=== PATIENT | female | born 1965 | race Caucasian/White ===

== ENCOUNTER 2017-08-12 16:23 | Emergency (ER) | payer BC ==
--- NOTE | 2017-08-12 18:21 | ER Document Report ---
ED Medical Screen (RME) - General Chief Complaint: Passed Out Prior to Arrival Stated Complaint: SYCOPE Time Seen by Provider: 08/12/17 18:18 Notes: Patient states that she was diagnosed with an upper respiratory infection yesterday at urgent care. She was given Zithromax and Tussionex. She took 1 dose of it today around 1 PM. She states approximately 3 PM she sat forward on the couch because that she was going to vomit and the next thing she knew she was being picked up off the floor by her . Her states she slid to the end of the bed and then he saw her fall face forward on the floor. No previous history of similar problems except 30 Years Ago Patient Did Pass out once with a kidney stone. Patient has had nausea but no vomiting. No diarrhea no rashes no other trauma. - Related Data Allergies/Adverse Reactions: Quinolones Allergy (Severe, Verified 08/12/17 16:27) Hives ofloxacin [From Floxin] Allergy (Verified 08/12/17 16:27) Hives Past Medical History - Social History Chew tobacco use (# tins/day): Yes Frequency of alcohol use: None Drug Abuse: None - Past Medical History Cardiac Medical History: Reports: Hx Hypercholesterolemia, Hx Hypertension Denies: Hx Coronary Artery Disease, Hx Heart Attack Pulmonary Medical History: Denies: Hx Asthma, Hx Bronchitis, Hx COPD, Hx Pneumonia Neurological Medical History: Denies: Hx Cerebrovascular Accident, Hx Seizures Renal/ Medical History: Reports: Hx Kidney Stones. Denies: Hx Peritoneal Dialysis Musculoskeltal Medical History: Denies Hx Arthritis Past Surgical History: Reports: Hx Kidney (Renal Surgery) - KIDNEY STONE SURGERY , Hx Orthopedic Surgery - left thr, Hx Tubal Ligation. Denies: Hx Pacemaker - Immunizations Hx Diphtheria, Pertussis, Tetanus Vaccination: No Physical Exam - Vital signs Vitals: Temp Pulse Resp BP Pulse Ox 99.9 F 94 18 106/63 97 08/12/17 16:41 08/12/17 16:41 08/12/17 16:41 08/12/17 16:41 08/12/17 16:41 Course - Vital Signs Vital signs: Temp Pulse Resp BP Pulse Ox 99.9 F 94 18 106/63 97 08/12/17 16:41 08/12/17 16:41 08/12/17 16:41 08/12/17 16:41 08/12/17 16:41 Doctor's Discharge - Discharge Referrals: KAMERON EASTMAN MD [Primary Care Provider] - Follow up as needed
--- NOTE | 2017-08-12 20:04 | ER Document Report ---
ED General - General Chief Complaint: Passed Out Prior to Arrival Stated Complaint: SYCOPE Time Seen by Provider: 08/12/17 18:18 Notes: Patient is a 51-year-old female who comes emergency department for chief complaint of syncopal episode, she states she has had upper respiratory infection with cough and congestion along with chills, she was started on azithromycin and Tussionex, she took her medication this evening and shortly after she passed out. states she was getting up from the couch as if to throw up and then passed out, fell forward, and hit her face on the floor. Patient denies headache, dizziness, visual changes, nausea, chest pain, or any other current symptoms other than feeling tired. She does have intermittent congested cough. She smokes, has a history of hypertension and hyperlipidemia. - Related Data Allergies/Adverse Reactions: Quinolones Allergy (Severe, Verified 08/12/17 16:27) Hives ofloxacin [From Floxin] Allergy (Verified 08/12/17 16:27) Hives Past Medical History - General Information source: Patient, Relative - Social History Smoking Status: Current Every Day Smoker Chew tobacco use (# tins/day): Yes Frequency of alcohol use: None Drug Abuse: None Lives with: Family Family History: Reviewed & Not Pertinent Patient has suicidal ideation: No Patient has homicidal ideation: No - Past Medical History Cardiac Medical History: Reports: Hx Hypercholesterolemia, Hx Hypertension Denies: Hx Coronary Artery Disease, Hx Heart Attack Pulmonary Medical History: Denies: Hx Asthma, Hx Bronchitis, Hx COPD, Hx Pneumonia Neurological Medical History: Denies: Hx Cerebrovascular Accident, Hx Seizures Renal/ Medical History: Reports: Hx Kidney Stones. Denies: Hx Peritoneal Dialysis Musculoskeltal Medical History: Denies Hx Arthritis Past Surgical History: Reports: Hx Kidney (Renal Surgery) - KIDNEY STONE SURGERY , Hx Orthopedic Surgery - left thr, Hx Tubal Ligation. Denies: Hx Pacemaker - Immunizations Hx Diphtheria, Pertussis, Tetanus Vaccination: No Review of Systems - Review of Systems Constitutional: See HPI EENT: No symptoms reported Cardiovascular: No symptoms reported Respiratory: See HPI Gastrointestinal: See HPI Genitourinary: No symptoms reported Female Genitourinary: No symptoms reported Musculoskeletal: No symptoms reported Skin: No symptoms reported Hematologic/Lymphatic: No symptoms reported Neurological/Psychological: See HPI Physical Exam - Vital signs Vitals: Temp Pulse Resp BP Pulse Ox 99.9 F 94 18 106/63 97 08/12/17 16:41 08/12/17 16:41 08/12/17 16:41 08/12/17 16:41 08/12/17 16:41 Interpretation: Normal - General General appearance: Appears well In distress: None - HEENT Head: Normocephalic, Atraumatic Eyes: Normal Conjunctiva: Normal Extraocular movements intact: Yes Eyelashes: Normal Pupils: PERRL Sinus: Normal Nasal: Normal Mouth/Lips: Normal Mucous membranes: Normal Pharynx: Normal Neck: Normal - Respiratory Respiratory status: No respiratory distress Chest status: Nontender Breath sounds: Normal. No: Decreased air movement, Wheezing Chest palpation: Normal - Cardiovascular Rhythm: Regular. No: Tachycardia Heart sounds: Normal auscultation, S1 appreciated, S2 appreciated Murmur: No - Abdominal Inspection: Normal Distension: No distension Bowel sounds: Normal Tenderness: Nontender. No: Tender, Guarding Organomegaly: No organomegaly - Back Back: Normal, Nontender. No: Tender - Extremities General upper extremity: Normal inspection, Nontender, Normal strength, Normal temperature General lower extremity: Normal inspection, Nontender, Normal strength, Normal temperature. No: Edema - Neurological Neuro grossly intact: Yes Cognition: Normal Orientation: AAOx4 Pemberton Coma Scale Eye Opening: Spontaneous [place] Coma Scale Verbal: Oriented P[place] Coma Scale Motor: Obeys Commands Pemberton Coma Scale Total: 15 Speech: Normal Motor strength normal: LUE, RUE, LLE, RLE Sensory: Normal - Psychological Associated symptoms: Normal affect, Normal mood - Skin Skin Temperature: Warm Skin Moisture: Dry Skin Color: Normal Course - Re-evaluation Re-evalutation: Patient alert, well-appearing, has a normal neurological exam, no complaints currently other than occasional congested cough and feeling tired. She had taken hydrocodone prior to syncope although this has not happened before and she had taken it before. EKG shows sinus rhythm at a rate of 95, flattened T waves anteriorly, no T-wave inversions or ST segment changes in consecutive leads, normal axis, normal UT interval 156, QTC of 418. Patient did not have any chest pain. Negative troponin. Troponin was cycled and still negative. Chest x-ray unremarkable. CBC shows elevated hemoglobin, patient was given IV fluids, she is also a chronic smoker. Chemistry is unremarkable, urine is actually unremarkable. On reevaluation patient is alert and well-appearing. CAT scan of the head is normal. Patient states she is afraid to take her cough medicine because she passed out shortly after taking this. She states she already has Tessalon at home and she is asking to be discharged because she feels fine. The exact cause of her syncopal episode at this time is uncertain although I do suspect this is vasovagal and possibly affected by the medication as well. No evidence of ACS, hypoglycemia, and patient examination is benign. Patient has close primary care follow-up. Patient asking for Zofran to take with her antibiotic and other cough medicine. Discussed return precautions, head injury precautions , patient and state understanding and agreement. - Vital Signs Vital signs: Temp Pulse Resp BP Pulse Ox 99.9 F 89 16 114/64 97 08/12/17 23:27 08/12/17 23:27 08/12/17 23:27 08/12/17 23:27 08/12/17 23:27 - Laboratory Result Diagrams: 08/12/17 20:15 08/12/17 20:15 Laboratory results interpreted by me: 08/12/17 20:15 RBC 5.57 H Hgb 16.2 H Hct 49.2 H RDW 14.9 H Lymphocytes % 10.6 L Monocytes % 13.6 H Discharge - Discharge Clinical Impression: Cough Episode of syncope Qualifiers: Syncope type: unspecified Qualified Code(s): R55 - Syncope and collapse Upper respiratory infection Qualifiers: URI type: unspecified URI Qualified Code(s): J06.9 - Acute upper respiratory infection, unspecified Condition: Stable Disposition: HOME, SELF-CARE Additional Instructions: The CAT scan of your head does not show any abnormality. Please follow head injury precautions listed below. Continue your azithromycin. Because he passed out after taking the Tussionex I would use this only with a lot of caution, maybe try cutting it in half or not using it altogether. Take Zofran if needed for nausea with your medications. Follow-up with your primary care for additional evaluation and management. See additional details on syncope below. Return for any concerning symptoms. Head Injury Precautions At this point, there is no evidence that your head injury is serious. Observation is necessary, however. Take only clear liquids for the first few hours, unless told otherwise by the doctor. If no pain medication was prescribed, you may take acetaminophen according to the directions on the bottle. Do not take any medication that may alter your level of alertness (unless you've discussed it with the doctor first) . Limit activity for the first 24 hours. Bed rest is best. During the first 24 hours, check to see approximately every two to three hours that the patient is easily arousable, responds normally, and can perform common tasks such as walking without difficulty. Contact your doctor or go to the hospital if any of the following things occur: Persistent vomiting, difficulty in arousing the patient, worsening or continued headache, or failure to improve as expected. Head injuries can cause symptoms that persist for a few days or even a few weeks. Syncopal Episode Syncope (fainting or near-fainting) can occur from many different health problems. Or it can be a simple fainting spell requiring no treatment. It is safe for you to go home, but further evaluation will likely be necessary. Your work-up may include tests for internal bleeding, heart disease, medication problems, or near-strokes. Tests are not always required, however, depending on the nature of your problem. The warning signs of an impending faint include: dizziness, lightheadedness , nausea, hot flashes, tingling, and weakness. If this happens, lay down and put your feet up, then wait until all of these symptoms have passed before standing up again. If these episodes become recurrent, or if you develop chest pain, heart palpitations, mental confusion, blurred vision, or headache, then you should call the physician, or go to the emergency room. Prescriptions: Ondansetron [Zofran Odt 4 mg Tablet] 1 - 2 tab PO Q4H PRN #15 tab.rapdis PRN Reason: For Nausea/Vomiting Referrals: KAMERON EASTMAN MD [Primary Care Provider] - Follow up as needed
--- NOTE | 2017-08-12 20:16 | RADIOLOGY REPORT (SQ) ---
EXAM DESCRIPTION: CHEST PA/LAT COMPLETED DATE/TIME: 08/12/2017 8:08 pm REASON FOR STUDY: cough, syncope COMPARISON: None. EXAM PARAMETERS: NUMBER OF VIEWS: two views TECHNIQUE: Digital Frontal and Lateral radiographic views of the chest acquired. RADIATION DOSE: NA LIMITATIONS: none FINDINGS: LUNGS AND PLEURA: Mild chronic interstitial changes are suggested. There is no acute infi ltrate or effusion. There is no mass. MEDIASTINUM AND HILAR STRUCTURES: No masses or contour abnormalities. HEART AND VASCULAR STRUCTURES: Heart normal size. No evidence for failure. BONES: No acute findings. HARDWARE: None in the chest. OTHER: No other significant finding. IMPRESSION: Chronic lung changes with no acute cardiopulmonary disease. TECHNICAL DOCUMENTATION: JOB ID: [id number] [employer]- All Rights Reserved Reading location - IP/workstation name: [email or web address]
--- NOTE | 2017-08-12 20:41 | RADIOLOGY REPORT (SQ) ---
EXAM DESCRIPTION: CT HEAD WITHOUT COMPLETED DATE/TIME: 08/12/2017 8:14 pm REASON FOR STUDY: syncope COMPARISON: None. TECHNIQUE: Axial images acquired through the brain without intravenous contrast. Images reviewed wi th bone, brain and subdural windows. Images stored on PACS. All CT scanners at this facility use dose modulation, iterative reconstruction, and/or weight based d osing when appropriate to reduce radiation dose to as low as reasonably achievable (ALARA). [facility]: Dose Right [facility]: CareDose [facility]: Dose Right [facility]: Teradose 4D [facility]: Smart Reebee RADIATION DOSE: CT Rad equipment meets quality standard of care and radiation dose reduction techniq ues were employed. CTDIvol: 64.6 mGy. DLP: 1034 mGy-cm. mGy. LIMITATIONS: None. FINDINGS: VENTRICLES: Normal size and contour. CEREBRUM: No masses. No hemorrhage. No midline shift. No evidence for acute infarction. Normal gra y/white matter differentiation. No areas of low density in the white matter. CEREBELLUM: No masses. No hemorrhage. No alteration of density. No evidence for acute infarction. EXTRAAXIAL SPACES: No fluid collections. No masses. ORBITS AND GLOBE: No intra- or extraconal masses. Normal contour of globe without masses. CALVARIUM: No fracture. PARANASAL SINUSES: No fluid or mucosal thickening. SOFT TISSUES: No mass or hematoma. OTHER: No other significant finding. IMPRESSION: NORMAL BRAIN CT WITHOUT CONTRAST. EVIDENCE OF ACUTE STROKE: NO. COMMENT: Quality ID # [id number]: Final reports with documentation of one or more dose reduction techniques (e.g., Automated exposure control, adjustment of the mA and/or kV according to patient size, use of iterative reconstruction technique) TECHNICAL DOCUMENTATION: JOB ID: [id number] [employer]- All Rights Reserved Reading location - IP/workstation name: [email or web address]
[2017-08-12] MEDS ORDERED: NORMAL SALINE 1000 ML 1,000 ML IV ONE (20:52)
[2017-08-12 20:57] LABS: ABSOLUTE LYMPHOCYTES (AUTO) 0.9 10^3/uL (0.5-4.7); ABSOLUTE MONOCYTES (AUTO) 1.1 10^3/uL (0.1-1.4); ABSOLUTE NEUT (AUTO) 6.4 10^3/uL (1.7-8.2); BASOPHILS % (AUTO) 0.3 % (0-2); EOSINOPHILS % (AUTO) 0.1 % (0-6); HEMATOCRIT 49.2 % (36.0-47.0); HEMOGLOBIN 16.2 g/dL (12.0-15.5); LYMPHOCYTES % (AUTO) 10.6 % (13-45); MEAN CORPUSCULAR HEMOGLOBIN 29.1 pg (27.0-33.4); MEAN CORPUSCULAR VOLUME 88 fl (80-97); MONOCYTES % (AUTO) 13.6 % (3-13); PLATELET COUNT 238 10^3/uL (150-450); RED BLOOD COUNT 5.57 10^6/uL (3.72-5.28); RED CELL DISTRIBUTION WIDTH 14.9 % (11.5-14.0); SEGMENTED NEUTROPHILS % (AUTO) 75.4 % (42-78); TOTAL CELLS COUNTED % (AUTO) 100 %; WHITE BLOOD COUNT 8.5 10^3/uL (4.0-10.5)
[2017-08-12 21:18] LABS: ALANINE AMINOTRANSFERASE 45 U/L (9-52); ALKALINE PHOSPHATASE 77 U/L (38-126); ANION GAP 11 (5-19); ASPARTATE AMINO TRANSFERASE 25 U/L (14-36); BILIRUBIN,DIRECT 0.2 mg/dL (0.0-0.4); BILIRUBIN,TOTAL 0.3 mg/dL (0.2-1.3); BLOOD UREA NITROGEN 12 mg/dL (7-20); CALCIUM 9.5 mg/dL (8.4-10.2); CARBON DIOXIDE 27 mmol/L (22-30); CHLORIDE 102 mmol/L (98-107); GLUCOSE 93 mg/dL (75-110); POTASSIUM 4.8 mmol/L (3.6-5.0); SODIUM 139.8 mmol/L (137-145); TOTAL PROTEIN 6.8 g/dL (6.3-8.2)
[2017-08-12 21:23] LABS: APPEARANCE,URINE SLIGHTLY-CLOUDY; BILIRUBIN,URINE NEGATIVE (NEGATIVE); COLOR,URINE YELLOW; GLUCOSE, URINE NEGATIVE (NEGATIVE); KETONES,URINE NEGATIVE (NEGATIVE); LEUKOCYTE ESTERASE,URINE NEGATIVE (NEGATIVE); NITRITE,URINE NEGATIVE (NEGATIVE); PROTEIN,URINE NEGATIVE (NEGATIVE); URINE SPECIFIC GRAVITY 1.018; UROBILINOGEN,URINE NEGATIVE mg/dL (<2.0)
[2017-08-12] MEDS ORDERED: ONDANSETRON ODT 4 MG TAB (6 TAB/ER DISP) PO PRN (22:26)
[2017-08-12 23:28] VITALS: BP 114/64
--- NOTE | 2017-08-13 07:44 | EKG REPORT ---
SEVERITY:- ABNORMAL ECG - SINUS RHYTHM PROBABLE INFERIOR INFARCT, AGE INDETERMINATE EXTENSIVE ANTERIOR INFARCT, AGE INDETERMINATE : Confirmed by: Earnest Galvan MD 13-Aug-2017 07:44:29
== END 2017-08-12 23:29 | disposition home or self-care (01) ==
LOC: ER 16:23
DX: R55 Syncope and collapse (principal); J06.9 Acute upper respiratory infection, unspecified; R05 Cough; R09.81 Nasal congestion; W19.XXXA Unspecified fall, initial encounter; W18.00XA Striking against unspecified object with subsequent fall, initial encounter; F17.200 Nicotine dependence, unspecified, uncomplicated; I10 Essential (primary) hypertension; E78.5 Hyperlipidemia, unspecified; Z79.899 Other long term (current) drug therapy
CPT/HCPCS: 93005; 99285; 96360; 36415; 85025; 81025; 80053; 81001; 84484; 71046; 70450; 93010; J7030

== ENCOUNTER 2018-01-14 15:51 | Emergency (ER) | payer BC ==
[2018-01-14] MEDS ORDERED: MORPHINE SULFATE 10 MG/ML INJ IV ONE ×2 (19:23→23:31)
[2018-01-14] MEDS ORDERED: ONDANSETRON HCL INJ/PF 4 MG/2 ML SDV IV ONE (19:23)
[2018-01-14] MEDS ORDERED: NORMAL SALINE 1000 ML 1,000 ML IV ONE (19:23)
--- NOTE | 2018-01-14 19:25 | ER Document Report ---
ED GI/ - General Chief Complaint: Lower Abdominal Pain Stated Complaint: ABDOMINAL PAIN Time Seen by Provider: 01/14/18 19:08 Notes: Patient is a 52 year old female that comes to the emergency department for chief complaint of left lower quadrant pain that has been worsening over the past 2 days, she states today it became severe and she started feeling chills, she denies vomiting, her last bowel movement was yesterday morning, nonbloody. She denies flank pain, dysuria, vaginal bleeding or discharge. She was seen by her primary care provider at [facility], they did a blood count and saw that she had an elevated WBC count, she was referred to the emergency department. She does have a history of diverticulitis, denies history of abdominal surgeries, past medical history also includes smoking, hypertension, hyperlipidemia. TRAVEL OUTSIDE OF THE [place] IN LAST 30 DAYS: No - Related Data Allergies/Adverse Reactions: Quinolones Allergy (Severe, Verified 08/12/17 16:27) Hives ofloxacin [From Floxin] Allergy (Verified 08/12/17 16:27) Hives Past Medical History - General Information source: Patient - Social History Smoking Status: Current Every Day Smoker Chew tobacco use (# tins/day): No Frequency of alcohol use: Occasional Drug Abuse: None Lives with: Family Family History: Reviewed & Not Pertinent Patient has suicidal ideation: No Patient has homicidal ideation: No - Past Medical History Cardiac Medical History: Reports: Hx Hypercholesterolemia, Hx Hypertension Denies: Hx Coronary Artery Disease, Hx Heart Attack Pulmonary Medical History: Denies: Hx Asthma, Hx Bronchitis, Hx COPD, Hx Pneumonia Neurological Medical History: Denies: Hx Cerebrovascular Accident, Hx Seizures Renal/ Medical History: Reports: Hx Kidney Stones. Denies: Hx Peritoneal Dialysis Musculoskeletal Medical History: Denies Hx Arthritis Past Surgical History: Reports: Hx Kidney (Renal Surgery) - KIDNEY STONE SURGERY , Hx Orthopedic Surgery - left hip, Hx Tubal Ligation. Denies: Hx Pacemaker - Immunizations Hx Diphtheria, Pertussis, Tetanus Vaccination: Yes Review of Systems - Review of Systems Constitutional: No symptoms reported EENT: No symptoms reported Cardiovascular: No symptoms reported Respiratory: No symptoms reported Gastrointestinal: See HPI Genitourinary: No symptoms reported Female Genitourinary: No symptoms reported Musculoskeletal: No symptoms reported Skin: No symptoms reported Hematologic/Lymphatic: No symptoms reported Neurological/Psychological: No symptoms reported Physical Exam - Vital signs Vitals: Temp Pulse Resp BP Pulse Ox 97.6 F 78 16 134/85 H 95 01/14/18 16:02 01/14/18 16:02 01/14/18 16:02 01/14/18 16:02 01/14/18 16:02 - Notes Notes: GENERAL: Alert, interacts well. Patient appears mildly uncomfortable. HEAD: Normocephalic, atraumatic. EYES: Pupils equal, round, and reactive to light. Extraocular movements intact. ENT: Oral mucosa moist, tongue midline. Unremarkable oropharyngeal exam. NECK: Full range of motion. Supple. Trachea midline. LUNGS: Clear to auscultation bilaterally, no wheezes, rales, or rhonchi. No respiratory distress. HEART: Regular rate and rhythm. No murmur ABDOMEN: Left lower quadrant pain with tenderness and wincing, upper abdominal exam is completely nontender, right lower quadrant unremarkable. No distention. Bowel sounds present in all quadrants. EXTREMITIES: Moves all 4 extremities spontaneously. No edema, normal radial and dorsalis pedis pulses bilaterally. No cyanosis. BACK: no cervical, thoracic, lumbar midline tenderness. No saddle anesthesia, normal distal neurovascular exam. NEUROLOGICAL: Alert and oriented x3. Normal speech. [cranial nerves II through XII grossly intact]. PSYCH: Normal affect, normal mood. SKIN: Warm, dry, normal turgor. No rashes or lesions noted. Course - Re-evaluation Re-evalutation: Leukocytosis of 15,000, no bandemia. Chemistry shows no concerning abnormality , lipase is mildly elevated, LFTs and bilirubin are normal. Urinalysis unremarkable. CAT scan of the abdomen and pelvis with IV contrast showing sigmoid diverticulitis, no abscess, no perforation. Patient is afebrile, not tachycardic, not hypotensive. CT also shows cholelithiasis, lipase is mildly elevated, however patient has absolutely no upper abdominal pain complaints, upper abdomen is completely benign, patient tolerated p.o. here without any difficulty. Patient is requesting to go home. I do have low suspicion of acute cholecystitis, bile duct obstruction, or even gallbladder symptoms. Discussed return precautions in detail with patient, placing on Augmentin because of fluoroquinolone allergy , provided with symptom management, patient states she will follow-up with her doctor and return if she worsens in any way. Stable at time of discharge. - Vital Signs Vital signs: Temp Pulse Resp BP Pulse Ox 98.2 F 84 18 128/79 H 96 01/15/18 00:50 01/15/18 00:50 01/15/18 00:50 01/15/18 00:50 01/15/18 00:50 - Laboratory Result Diagrams: 01/14/18 19:55 01/14/18 21:15 Laboratory results interpreted by me: 01/14/18 01/14/18 01/14/18 19:55 19:55 21:15 WBC 15.4 H Hgb 16.2 H Hct 48.1 H RDW 14.8 H Lymphocytes % 12.7 L Absolute Neutrophils 11.8 H Chloride 108 H Carbon Dioxide 21 L Lipase 554.7 H Urine Blood SMALL H Ur Leukocyte Esterase SMALL H Discharge - Discharge Clinical Impression: Diverticulitis, LLQ pain Condition: Stable Disposition: HOME, SELF-CARE Additional Instructions: Your evaluation is consistent with diverticulitis, you have been started on antibiotics for this, take pain medication and nausea medication as prescribed, start with clear liquid diet for the first 1-2 days and then slowly progress with bland diet. Follow-up with your provider within the next 2-3 days for additional evaluation and management. Return if you worsen including increased pain, vomiting, bloody stools, fever 100.4 or greater, or any other concerning symptoms. Prescriptions: Morphine Sulfate [Morphine Ir 15 Mg Tablet] 15 mg PO Q4HP PRN #12 tablet PRN Reason: Amox Tr/Potassium Clavulanate [Augmentin 875-125 Tablet] 1 tab PO BID 7 Days tablet Ondansetron [Zofran Odt 4 mg Tablet] 1 - 2 tab PO Q4H PRN #15 tab.rapdis PRN Reason: For Nausea/Vomiting Forms: Return to Work Referrals: KAMERON EASTMAN MD [Primary Care Provider] - Follow up as needed
[2018-01-14 20:10] LABS: ABSOLUTE BASOPHILS # (AUTO) 0.1 10^3/uL (0.0-0.2); ABSOLUTE EOSINOPHILS # (AUTO) 0.2 10^3/uL (0.0-0.6); ABSOLUTE LYMPHOCYTES (AUTO) 1.9 10^3/uL (0.5-4.7); ABSOLUTE MONOCYTES (AUTO) 1.3 10^3/uL (0.1-1.4); ABSOLUTE NEUT (AUTO) 11.8 10^3/uL (1.7-8.2); BASOPHILS % (AUTO) 0.4 % (0-2); EOSINOPHILS % (AUTO) 1.4 % (0-6); HEMATOCRIT 48.1 % (36.0-47.0); HEMOGLOBIN 16.2 g/dL (12.0-15.5); LYMPHOCYTES % (AUTO) 12.7 % (13-45); MEAN CORPUSCULAR HEMOGLOBIN 30.8 pg (27.0-33.4); MEAN CORPUSCULAR HGB CONC 33.7 g/dL (32.0-36.0); MEAN CORPUSCULAR VOLUME 91 fl (80-97); MONOCYTES % (AUTO) 8.7 % (3-13); PLATELET COUNT 324 10^3/uL (150-450); RED BLOOD COUNT 5.27 10^6/uL (3.72-5.28); RED CELL DISTRIBUTION WIDTH 14.8 % (11.5-14.0); SEGMENTED NEUTROPHILS % (AUTO) 76.8 % (42-78); TOTAL CELLS COUNTED % (AUTO) 100 %; WHITE BLOOD COUNT 15.4 10^3/uL (4.0-10.5)
[2018-01-14 20:20] LABS: APPEARANCE,URINE CLEAR; BILIRUBIN,URINE NEGATIVE (NEGATIVE); COLOR,URINE YELLOW; GLUCOSE, URINE NEGATIVE (NEGATIVE); KETONES,URINE NEGATIVE (NEGATIVE); LEUKOCYTE ESTERASE,URINE SMALL (NEGATIVE); NITRITE,URINE NEGATIVE (NEGATIVE); PROTEIN,URINE NEGATIVE (NEGATIVE); URINE SPECIFIC GRAVITY 1.014; UROBILINOGEN,URINE NEGATIVE mg/dL (<2.0)
[2018-01-14] MEDS ORDERED: AMPICILLIN SOD/SULBACTAM 3 GM VIAL IV ONE (20:39)
[2018-01-14 21:58] LABS: ALANINE AMINOTRANSFERASE 47 U/L (9-52); ALBUMIN 3.6 g/dL (3.5-5.0); ALKALINE PHOSPHATASE 87 U/L (38-126); ANION GAP 11 (5-19); ASPARTATE AMINO TRANSFERASE 21 U/L (14-36); BILIRUBIN,DIRECT 0.3 mg/dL (0.0-0.4); BILIRUBIN,TOTAL 0.8 mg/dL (0.2-1.3); BLOOD UREA NITROGEN 14 mg/dL (7-20); CARBON DIOXIDE 21 mmol/L (22-30); CHLORIDE 108 mmol/L (98-107); GLUCOSE 105 mg/dL (75-110); LIPASE 554.7 U/L (23-300); POTASSIUM 4.3 mmol/L (3.6-5.0); TOTAL PROTEIN 6.6 g/dL (6.3-8.2)
--- NOTE | 2018-01-14 23:31 | RADIOLOGY REPORT (SQ) ---
EXAM DESCRIPTION: CT ABDOMEN PELVIS WITH IV CONTRAST COMPLETED DATE/TME: 01/14/2018 19:22 CLINICAL HISTORY: 52 years Female, leukocytosis 15.4, sharp LLQ pain, hx diverticulitis Comparison: None. Technique: IV contrast. Coronal and sagittal reformat. This exam was performed according to our departmental dose-optimization program, which includes automated exposure control, adjustment of the mA and/or kV according to patient size and/or use of iterative reconstruction technique. [facility]: Dose Right [facility]: CareDose [facility]: Dose Right [facility]: Teradose 4D [facility]: [employer] LIMITATIONS: None Findings: Mild diverticulitis includes an inflamed diverticulum of the proximal sigmoid at the left lower abdominal quadrant. Cholelithiasis. Left total hip arthroplasty.Normal appendix. Hepatic steatosis. No significant free fluid in the abdomen or pelvis. Inferior thorax, liver, gallbladder, pancreas, spleen, adrenals, renal system, gastrointestinal tract, pelvic organs, lymphatics, vasculature, and musculoskeleton appear otherwise unremarkable. IMPRESSION: 1. Mild proximal sigmoid diverticulitis. 2. Cholelithiasis.
[2018-01-15] MEDS ORDERED: HYDROCODONE/ACETAMINOPHEN 5-325 MG (6 TAB/ER DISP) PO PRN (00:06)
[2018-01-15] MEDS ORDERED: ONDANSETRON ODT 4 MG TAB (6 TAB/ER DISP) PO PRN (00:06)
[2018-01-15 00:59] VITALS: BP 128/79
== END 2018-01-15 00:52 | disposition home or self-care (01) ==
LOC: ER 15:51
DX: K57.32 Diverticulitis of large intestine without perforation or abscess without bleeding (principal); K80.20 Calculus of gallbladder without cholecystitis without obstruction; R10.32 Left lower quadrant pain; R74.8 Abnormal levels of other serum enzymes; R68.83 Chills (without fever); F17.200 Nicotine dependence, unspecified, uncomplicated; I10 Essential (primary) hypertension; Z88.1 Allergy status to other antibiotic agents; Z87.442 Personal history of urinary calculi
CPT/HCPCS: 99284; 96361; 96375; 96365; 36415; 83690; 85025; 80053; 81001; 74177; J0295; J2270; J2405; J7030

== ENCOUNTER 2018-08-28 16:34 | Inpatient (IN) | payer BC ==
[2018-08-28] MEDS ORDERED: ONDANSETRON HCL INJ/PF 4 MG/2 ML SDV IV ONE ×2 (17:07→22:42)
--- NOTE | 2018-08-28 17:07 | ER Document Report ---
ED Medical Screen (RME) - General Chief Complaint: Abdominal Pain Stated Complaint: ABDOMINAL PAIN Time Seen by Provider: 08/28/18 16:56 TRAVEL OUTSIDE OF THE [place] IN LAST 30 DAYS: No - HPI Notes: 08/28/18 17:00 Patient is a 52-year-old female with a history of kidney stones, gallstones, and diverticulosis with previous episodes of diverticulitis who presents the emergency department complaining of mid abdominal pain that radiates around her waist bilaterally. The pain has been intermittent over the past week, but worsening over the last 24 hours. Patient is not aware of anything that improves or worsens her pain. Pain does not radiate. She does have associated nausea. She still urinating normally and having normal bowel movements. No vaginal discharge, odor, or bleeding. History of tubal ligation. Denies CAMILO, fever, neck pain, URI, CP, SOB, or rash. I have treated and performed a rapid initial assessment of this patient. A comprehensive ED assessment and evaluation of the patient, analysis of test results and completion of medical decision making process will be conducted by additional ED providers. Will defer imaging order to next provider that can lay the patient down and palp her abd is from. PHYSICAL EXAMINATION: GENERAL: Well-appearing, well-nourished and in no acute distress. A&Ox4. Answers questions appropriately. LUNGS: Breath sounds clear to auscultation bilaterally and equal. No wheezes rales or rhonchi. HEART: Regular rate and rhythm without murmurs, rubs, gallops. ABDOMEN: Soft, nondistended abdomen. No guarding, no rebound. Normal bowel sounds present. No CVA tenderness bilaterally. + mid abd tenderness (cannot elicit thorough abd exam w/o table, however). - Related Data Allergies/Adverse Reactions: Quinolones Allergy (Severe, Verified 08/12/17 16:27) Hives ofloxacin [From Floxin] Allergy (Verified 08/12/17 16:27) Hives Past Medical History - Past Medical History Cardiac Medical History: Reports: Hx Hypercholesterolemia, Hx Hypertension Denies: Hx Coronary Artery Disease, Hx Heart Attack Pulmonary Medical History: Denies: Hx Asthma, Hx Bronchitis, Hx COPD, Hx Pneumonia Neurological Medical History: Denies: Hx Cerebrovascular Accident, Hx Seizures Renal/ Medical History: Reports: Hx Kidney Stones. Denies: Hx Peritoneal Dialysis Musculoskeltal Medical History: Denies Hx Arthritis Past Surgical History: Reports: Hx Kidney (Renal Surgery) - KIDNEY STONE SURGERY, Hx Orthopedic Surgery - left hip, Hx Tubal Ligation. Denies: Hx Pacemaker - Immunizations Hx Diphtheria, Pertussis, Tetanus Vaccination: Yes Physical Exam - Vital signs Vitals: Temp Pulse Resp BP Pulse Ox 99.6 F 101 H 18 131/85 H 96 08/28/18 16:45 08/28/18 16:45 08/28/18 16:45 08/28/18 16:45 08/28/18 16:45 Course - Vital Signs Vital signs: Temp Pulse Resp BP Pulse Ox 99.6 F 101 H 18 131/85 H 96 08/28/18 16:45 08/28/18 16:45 08/28/18 16:45 08/28/18 16:45 08/28/18 16:45
[2018-08-28 17:56] LABS: HEMATOCRIT 46.2 % (36.0-47.0); HEMOGLOBIN 15.5 g/dL (12.0-15.5); MEAN CORPUSCULAR HEMOGLOBIN 29.7 pg (27.0-33.4); MEAN CORPUSCULAR HGB CONC 33.5 g/dL (32.0-36.0); MEAN CORPUSCULAR VOLUME 89 fl (80-97); PLATELET COUNT 356 10^3/uL (150-450); RED BLOOD COUNT 5.22 10^6/uL (3.72-5.28); RED CELL DISTRIBUTION WIDTH 14.3 % (11.5-14.0); WHITE BLOOD COUNT 20.2 10^3/uL (4.0-10.5)
[2018-08-28 18:04] LABS: APPEARANCE,URINE CLEAR; BILIRUBIN,URINE NEGATIVE (NEGATIVE); COLOR,URINE YELLOW; GLUCOSE, URINE NEGATIVE (NEGATIVE); KETONES,URINE NEGATIVE (NEGATIVE); LEUKOCYTE ESTERASE,URINE TRACE (NEGATIVE); NITRITE,URINE NEGATIVE (NEGATIVE); PROTEIN,URINE NEGATIVE (NEGATIVE); URINE SPECIFIC GRAVITY 1.012; UROBILINOGEN,URINE NEGATIVE mg/dL (<2.0)
[2018-08-28 18:15] LABS: ABSOLUTE LYMPHOCYTES# (MANUAL) 2.2 10^3/uL (0.5-4.7); ABSOLUTE NEUTROPHILS# (MANUAL) 15.6 10^3/uL (1.7-8.2); BASOPHILS % (MANUAL) 0 % (0-2); EOSINOPHILS % (MANUAL) 2 % (0-6); LYMPHOCYTES % (MANUAL) 11 % (13-45); MONOCYTES % (MANUAL) 10 % (3-13); SEGMENTED NEUTROPHILS % (MAN) 77 % (42-78); TOTAL CELLS COUNTED 100
[2018-08-28 18:16] LABS: ANISOCYTOSIS SLIGHT; PLATELET COMMENT ADEQUATE; TOXIC GRANULATION 1+
[2018-08-28 21:18] LABS: ALANINE AMINOTRANSFERASE 21 U/L (9-52); ALBUMIN 3.9 g/dL (3.5-5.0); ALKALINE PHOSPHATASE 91 U/L (38-126); ANION GAP 9 (5-19); ASPARTATE AMINO TRANSFERASE 21 U/L (14-36); BILIRUBIN,DIRECT 0.3 mg/dL (0.0-0.4); BILIRUBIN,TOTAL 0.7 mg/dL (0.2-1.3); BLOOD UREA NITROGEN 15 mg/dL (7-20); CALCIUM 9.8 mg/dL (8.4-10.2); CARBON DIOXIDE 27 mmol/L (22-30); CHLORIDE 102 mmol/L (98-107); GLUCOSE 104 mg/dL (75-110); POTASSIUM 4.8 mmol/L (3.6-5.0); SODIUM 138.2 mmol/L (137-145); TOTAL PROTEIN 7.2 g/dL (6.3-8.2)
[2018-08-28] MEDS ORDERED: NORMAL SALINE 1000 ML 1,000 ML IV ONE (22:42)
[2018-08-28] MEDS: MORPHINE SULFATE 10 MG/ML INJ IV PRN (22:51)
--- NOTE | 2018-08-28 23:19 | ER Document Report ---
ED General - General Chief Complaint: Abdominal Pain Stated Complaint: ABDOMINAL PAIN Time Seen by Provider: 08/28/18 16:56 Notes: Patient is a 52-year-old female with a past medical history of diverticulitis, presents with 1 week of on and off abdominal pain that became abruptly much worse in the past 24 hours. Patient described the pain as initially being mild to moderate, cramping in nature, intermittent as being over hurt the entirety of her lower abdomen. States it became constant this morning now rated as a severe, intense, not fluctuating pain diffusely in her abdomen but most localized to her left upper and lower quadrants. She has had associated nausea but no vomiting. Denies diarrhea or constipation. No melena or hematochezia. Denies a history of similar symptoms in the past. Moving seems to worsen the pain. Nothing improves the pain. She states this feels much more severe than cases of diverticulitis that she has had in the past. She has not seen her primary doctor regarding today's concerns. TRAVEL OUTSIDE OF THE [place] IN LAST 30 DAYS: No - Related Data Allergies/Adverse Reactions: Quinolones Allergy (Severe, Verified 08/12/17 16:27) Hives ofloxacin [From Floxin] Allergy (Verified 08/12/17 16:27) Hives Past Medical History - General Information source: Patient - Social History Smoking Status: Current Every Day Smoker Chew tobacco use (# tins/day): No Frequency of alcohol use: None Drug Abuse: None Lives with: Spouse/Significant other Family History: Reviewed & Not Pertinent Patient has suicidal ideation: No Patient has homicidal ideation: No - Past Medical History Cardiac Medical History: Reports: Hx Hypercholesterolemia, Hx Hypertension Denies: Hx Coronary Artery Disease, Hx Heart Attack Pulmonary Medical History: Denies: Hx Asthma, Hx Bronchitis, Hx COPD, Hx Pneumonia Neurological Medical History: Denies: Hx Cerebrovascular Accident, Hx Seizures Renal/ Medical History: Reports: Hx Kidney Stones. Denies: Hx Peritoneal Dialysis Musculoskeletal Medical History: Denies Hx Arthritis Past Surgical History: Reports: Hx Kidney (Renal Surgery) - KIDNEY STONE SURGERY, Hx Orthopedic Surgery - left hip, Hx Tubal Ligation. Denies: Hx Pacemaker - Immunizations Hx Diphtheria, Pertussis, Tetanus Vaccination: Yes Review of Systems - Review of Systems Notes: Constitutional: Negative for fever. HENT: Negative for sore throat. Eyes: Negative for visual changes. Cardiovascular: Negative for chest pain. Respiratory: Negative for shortness of breath. Gastrointestinal: Positive for abdominal pain and nausea Genitourinary: Negative for dysuria. Musculoskeletal: Negative for back pain. Skin: Negative for rash. Neurological: Negative for headaches, weakness or numbness. 10 point ROS negative except as marked above and in HPI. Physical Exam - Vital signs Vitals: Temp Pulse Resp BP Pulse Ox 99.6 F 101 H 18 131/85 H 96 08/28/18 16:45 08/28/18 16:45 08/28/18 16:45 08/28/18 16:45 08/28/18 16:45 Interpretation: Tachycardic Notes: PHYSICAL EXAMINATION: GENERAL: Ill in appearance but in no overt distress HEAD: Atraumatic, normocephalic. EYES: Pupils equal round and reactive to light, extraocular movements intact, sclera anicteric, conjunctiva are normal. ENT: nares patent, oropharynx clear without exudates. Moderately dry mucous membranes. NECK: Normal range of motion, supple without lymphadenopathy LUNGS: Breath sounds clear to auscultation bilaterally and equal. No wheezes rales or rhonchi. HEART: Regular tachycardia without murmurs ABDOMEN: Somewhat protuberant, mildly firm abdomen, diffusely tender to palpation with rebound throughout. No guarding of the abdomen. EXTREMITIES: Normal range of motion, no pitting or edema. No cyanosis. NEUROLOGICAL: No focal neurological deficits. Moves all extremities spontaneously and on command. PSYCH: Normal mood, normal affect. SKIN: Warm, Dry, normal turgor, no rashes or lesions noted. Course - Re-evaluation Re-evalutation: 08/28/18 23:19 Patient presents with diffuse abdominal pain most focal to the bilateral lower quadrants, some distention and diffuse rebound. Patient has a market leukocytosis of 20.2. CT scan of the abdomen pelvis will be obtained due to concern of possible perforation, diverticulitis or acute appendicitis 08/29/18 02:26 CT scan of the abdomen pelvis does demonstrate microperforation with associated diverticulitis consistent with clinical exam. Patient will be started on ceftriaxone, metronidazole, IV fluids ongoing. Patient continues to be quite un comfortable, morphine has been increased from 4-6 mg every 2 hours. I did discuss this case with the surgeon on-call Dr. Kaur does not recommend any surgical intervention at this time and feels the patient can go to the hospitalist service. Awaiting callback from Dr. Leon. 08/29/18 0240 I did discuss this case with Dr. Leon who has accepted the patient and requested formal consultation from surgery. This formal consult has been placed. - Vital Signs Vital signs: Temp Pulse Resp BP Pulse Ox 99.8 F 90 18 119/77 95 08/28/18 21:42 08/28/18 21:42 08/28/18 21:42 08/28/18 21:42 08/28/18 21:42 - Laboratory Result Diagrams: 08/28/18 17:30 08/28/18 20:45 Laboratory results interpreted by me: 08/28/18 08/28/18 08/28/18 17:30 17:30 20:45 WBC 20.2 H RDW 14.3 H Lymphocytes % (Manual) 11 L Abs Neuts (Manual) 15.6 H Abs Monocytes (Manual) 2.0 H Lipase 422.0 H Ur Leukocyte Esterase TRACE H - Diagnostic Test Radiology reviewed: Reports reviewed Discharge - Discharge Clinical Impression: Diverticulitis large intestine Qualifiers: Diverticulitis bleeding: without bleeding Diverticulitis complication: with perforation and without abscess Qualified Code(s): K57.20 - Diverticulitis of large intestine with perforation and abscess without bleeding Condition: Fair Disposition: ADMITTED INPATIENT Unit Admitted: Medical Floor
[2018-08-29] MEDS: MORPHINE SULFATE 10 MG/ML INJ IV PRN ×4 (00:50→09:02)
--- NOTE | 2018-08-29 01:05 | RADIOLOGY REPORT (SQ) ---
CT ABDOMEN PELVIS WITH IV CONTRAST HISTORY: Lower abdominal pain. Leukocytosis COMPARISON: 01/14/2018 TECHNIQUE: CT scan of the abdomen and pelvis was performed with IV contrast. This exam was performed according to our departmental dose-optimization program, which includes automated exposure control, adjustment of the mA and/or kV according to patient size and/or use of iterative reconstruction technique. FINDINGS: The lung bases are clear. No pleural or pericardial effusions. There is no hiatal hernia. There is diffuse hepatic steatosis. Gallstones are present without inflammatory changes. The spleen, pancreas, and adrenal glands are normal without hydronephrosis. There are bilateral nonobstructing calcifications in both kidneys along with tiny simple renal cysts. The pelvic organs are also normal. There is colonic diverticulosis with focal wall thickening and surrounding inflammatory stranding involving the splenic flexure and proximal descending colon consistent with acute diverticulitis. There are small pockets of free air consistent with microperforation. No drainable fluid collection is seen. The appendix is normal. There is no small bowel obstruction. Prior total left hip arthroplasty is noted. The aorta and IVC are normal. No body wall hernia is seen. IMPRESSION: 1. Acute diverticulitis with microperforation involving the splenic flexure and descending colon. 2. No drainable fluid collection.
[2018-08-29] MEDS ORDERED: METRONIDAZOLE 500 MG/NS RTU 500 MG/100 ML RTUPB IV ONE (02:13)
[2018-08-29] MEDS ORDERED: CEFTRIAXONE INJ 1000 MG VIAL IV ONE (02:14)
[2018-08-29] MEDS ORDERED: ONDANSETRON HCL INJ/PF 4 MG/2 ML SDV IV PRN (02:48)
[2018-08-29] MEDS ORDERED: PROMETHAZINE HCL INJ 25 MG/1 ML VIAL IV PRN (02:48)
[2018-08-29] MEDS ORDERED: IPRATROPIUM/ALBUTEROL 0.5-2.5 MG/3 ML AMPUL NEB PRN (02:48)
[2018-08-29] MEDS ORDERED: ACETAMINOPHEN 325 MG TABLET PO PRN (02:48)
[2018-08-29] MEDS ORDERED: FENTANYL CITRATE INJ/PF 100 MCG/2 ML AMPUL IV PRN ×2 (02:54→12:28)
[2018-08-29] MEDS ORDERED: IMIPENEM/CILASTATIN SODIUM INJ 500 MG VIAL IV ONE (03:46)
[2018-08-29] MEDS: IMIPENEM/CILASTATIN SODIUM 1,000 MG in NORMAL SALINE 250 ML IV SCH ×4 (04:07→21:14)
--- NOTE | 2018-08-29 04:56 | PDOC H&P ---
History of Present Illness Admission Date/PCP: 08/29/18 03:02 KAMERON EASTMAN MD Patient complains of: Abdominal pain History of Present Illness: MIGUEL BRENNER is a 52 year old female with a past medical history of hypertension, dyslipidemia, rosacea and recurrent diverticulitis. She presents with 48 hours of severe cramping lower abdominal pain. Recognizing the symptoms she is avoided p.o. intake and evaluated in the emergency room found to have leukocytosis, sigmoid colon diverticulitis with microperforation. She started on empiric antibiotics and referred to the hospitalist for admission. She denies significant constipation. Past Medical History Cardiac Medical History: Reports: Hyperlipidema, Hypertension Denies: Coronary Artery Disease, Myocardial Infarction Pulmonary Medical History: Denies: Asthma, Bronchitis, Chronic Obstructive Pulmonary Disease (COPD), Pneumonia Neurological Medical History: Denies: Seizures GI Medical History: Reports: Diverticulitis Musculoskeltal Medical History: Denies: Arthritis Hematology: Denies: Anemia Past Surgical History Past Surgical History: Reports: Orthopedic Surgery - left hip, Tubal Ligation Denies: Pacemaker Social History Information Source: Patient, Emergency Med Personnel, [facility] Records Lives with: Spouse/Significant other Smoking Status: Current Every Day Smoker Frequency of Alcohol Use: None Hx Recreational Drug Use: No Drugs: None - Advance Directive Resuscitation Status: Full Code Family History Family History: Hypertension Parental Family History Reviewed: Yes Children Family History Reviewed: Yes Sibling(s) Family History Reviewed.: Yes Medication/Allergy Home Medications: Olmesartan/Hydrochlorothiazide [Benicar Hct 20-12.5 Mg Tablet] 1 each PO DAILY 06/01/11 Oxycodone HCl/Acetaminophen [Percocet 5-325 mg Tablet] 1 - 2 tab PO ASDIR PRN 07/26/11 Ondansetron [Zofran Odt 4 mg Tablet] 1 - 2 tab PO Q4H PRN #15 tab.rapdis 08/12/17 Amox Tr/Potassium Clavulanate [Augmentin 875-125 Tablet] 1 tab PO BID 7 Days tablet 01/15/18 Morphine Sulfate [Morphine Ir 15 Mg Tablet] 15 mg PO Q4HP PRN #12 tablet 0 01/15/18 Ondansetron [Zofran Odt 4 mg Tablet] 1 - 2 tab PO Q4H PRN #15 tab.rapdis 01/15/18 Allergies/Adverse Reactions: Quinolones Allergy (Severe, Verified 08/12/17 16:27) Hives ofloxacin [From Floxin] Allergy (Verified 08/12/17 16:27) Hives Review of Systems Constitutional: ABSENT: chills, fever(s), headache(s), weight gain, weight loss Eyes: ABSENT: visual disturbances Ears: ABSENT: hearing changes Cardiovascular: ABSENT: chest pain, dyspnea on exertion, edema, orthropnea, palpitations Respiratory: ABSENT: cough, hemoptysis Gastrointestinal: ABSENT: abdominal pain, constipation, diarrhea, hematemesis, hematochezia, nausea, vomiting Genitourinary: ABSENT: dysuria, hematuria Musculoskeletal: ABSENT: joint swelling Integumentary: ABSENT: rash, wounds Neurological: ABSENT: abnormal gait, abnormal speech, confusion, dizziness, focal weakness, syncope Psychiatric: ABSENT: anxiety, depression, homidical ideation, suicidal ideation Endocrine: ABSENT: cold intolerance, heat intolerance, polydipsia, polyuria Hematologic/Lymphatic: ABSENT: easy bleeding, easy bruising Physical Exam Vital Signs: Temp Pulse Resp BP Pulse Ox 98.9 F 80 16 118/70 93 08/29/18 04:16 08/29/18 04:20 08/29/18 04:20 08/29/18 04:16 08/29/18 04:20 Intake & Output 08/27/18 08/28/18 08/29/18 11:59 11:59 11:59 Intake Total 1100 Balance 1100 Weight 95.4 kg General appearance: PRESENT: cooperative, obese, severe distress, well- developed, well-nourished, other - Chronic changes of rosacea Head exam: PRESENT: atraumatic, normocephalic Eye exam: PRESENT: conjunctiva pink, EOMI, PERRLA. ABSENT: scleral icterus Ear exam: PRESENT: normal external ear exam Mouth exam: PRESENT: moist, tongue midline Neck exam: ABSENT: carotid bruit, JVD, lymphadenopathy, thyromegaly Respiratory exam: PRESENT: clear to auscultation marianna. ABSENT: rales, rhonchi, wheezes Cardiovascular exam: PRESENT: RRR. ABSENT: diastolic murmur, rubs, systolic murmur Pulses: PRESENT: normal dorsalis pedis pul Vascular exam: PRESENT: normal capillary refill GI/Abdominal exam: PRESENT: distended, firm, hypoactive bowel sounds, tenderness. ABSENT: guarding, normal bowel sounds Rectal exam: PRESENT: deferred Extremities exam: PRESENT: full ROM. ABSENT: calf tenderness, clubbing, pedal edema Neurological exam: PRESENT: alert, awake, oriented to person, oriented to place, oriented to time, oriented to situation, CN II-XII grossly intact. ABSENT: motor sensory deficit Psychiatric exam: PRESENT: appropriate affect, normal mood. ABSENT: homicidal ideation, suicidal ideation Skin exam: PRESENT: dry, intact, warm, other - Chronic changes of rosacea. AB SENT: cyanosis, rash Results Laboratory Results: 08/28/18 17:30 08/28/18 20:45 08/28/18 08/28/18 08/28/18 17:30 17:30 17:30 WBC 20.2 H RBC 5.22 Hgb 15.5 Hct 46.2 MCV 89 MCH 29.7 MCHC 33.5 RDW 14.3 H Plt Count 356 Seg Neutrophils % Not Reportable Lymphocytes % Not Reportable Monocytes % Not Reportable Eosinophils % Not Reportable Basophils % Not Reportable Absolute Neutrophils Not Reportable Absolute Lymphocytes Not Reportable Absolute Monocytes Not Reportable Absolute Eosinophils Not Reportable Absolute Basophils Not Reportable Sodium Cancelled Potassium Cancelled Chloride Cancelled Carbon Dioxide Cancelled Anion Gap Cancelled BUN Cancelled Creatinine Cancelled Est GFR ( Amer) Cancelled Est GFR (Non-Af Amer) Cancelled Glucose Cancelled Calcium Cancelled Total Bilirubin Cancelled AST Cancelled ALT Cancelled Alkaline Phosphatase Cancelled Total Protein Cancelled Albumin Cancelled Lipase Cancelled Urine Color YELLOW Urine Appearance CLEAR Urine pH 7.0 Ur Specific [place] 1.012 Urine Protein NEGATIVE Urine Glucose (UA) NEGATIVE Urine Ketones NEGATIVE Urine Blood NEGATIVE Urine Nitrite NEGATIVE Ur Leukocyte Esterase TRACE H Urine WBC (Auto) 4 Urine RBC (Auto) 1 08/28/18 08/28/18 18:25 20:45 WBC RBC Hgb Hct MCV MCH MCHC RDW Plt Count Seg Neutrophils % Lymphocytes % Monocytes % Eosinophils % Basophils % Absolute Neutrophils Absolute Lymphocytes Absolute Monocytes Absolute Eosinophils Absolute Basophils Sodium Cancelled 138.2 Potassium Cancelled 4.8 Chloride Cancelled 102 Carbon Dioxide Cancelled 27 Anion Gap Cancelled 9 BUN Cancelled 15 Creatinine Cancelled 0.83 Est GFR ( Amer) Cancelled > 60 Est GFR (Non-Af Amer) Cancelled > 60 Glucose Cancelled 104 Calcium Cancelled 9.8 Total Bilirubin Cancelled 0.7 AST Cancelled 21 ALT Cancelled 21 Alkaline Phosphatase Cancelled 91 Total Protein Cancelled 7.2 Albumin Cancelled 3.9 Lipase Cancelled 422.0 H Urine Color Urine Appearance Urine pH Ur Specific [place] Urine Protein Urine Glucose (UA) Urine Ketones Urine Blood Urine Nitrite Ur Leukocyte Esterase Urine WBC (Auto) Urine RBC (Auto) Impressions: Abdomen/Pelvis CT 08/28/18 22:15 IMPRESSION: 1. Acute diverticulitis with microperforation involving the splenic flexure and descending colon. 2. No drainable fluid collection. Assessment and Plan - Diagnosis (1) Diverticulitis large intestine Qualifiers: Diverticulitis bleeding: without bleeding Diverticulitis complication: with perforation and without abscess Qualified Code(s): K57.20 - Diverticulitis of large intestine with perforation and abscess without bleeding Is this a current diagnosis for this admission?: Yes Plan: Complicated by increased frequency of recurrence and microperforation, imipenem initiated, symptomatic management, follow-up surgical consult and CBC. (2) Hypertension Is this a current diagnosis for this admission?: Yes Plan: Hydralazine as needed (3) Abdominal pain Is this a current diagnosis for this admission?: Yes Plan: Secondary to #1, Toradol and fentanyl for breakthrough pain. - Time Time Spent with patient: 35 or more minutes - Inpatient Certification Medical Necessity: Need Close Monitoring Due to Risk of Patient Decompensation
[2018-08-29] MEDS ORDERED: HYDRALAZINE HCL INJ/PF 20 MG/1 ML SDV IV PRN (04:57)
[2018-08-29] MEDS: KETOROLAC TROMETHAMINE INJ/PF 30 MG/1 ML SDV IV PRN ×2 (05:22→20:40)
[2018-08-29] MEDS: HEPARIN SOD (PORCINE) 5,000 UNIT/ML 1 ML SYRINGE SUBCUT SCH ×3 (05:23→21:15)
[2018-08-29] MEDS: NORMAL SALINE 1000 ML 1,000 ML IV PRN ×3 (05:59→14:34)
[2018-08-29 08:58] LABS: ABSOLUTE BASOPHILS # (AUTO) 0.1 10^3/uL (0.0-0.2); ABSOLUTE EOSINOPHILS # (AUTO) 0.1 10^3/uL (0.0-0.6); ABSOLUTE LYMPHOCYTES (AUTO) 1.5 10^3/uL (0.5-4.7); ABSOLUTE MONOCYTES (AUTO) 1.9 10^3/uL (0.1-1.4); BASOPHILS % (AUTO) 0.4 % (0-2); EOSINOPHILS % (AUTO) 0.4 % (0-6); LYMPHOCYTES % (AUTO) 8.4 % (13-45); MEAN CORPUSCULAR HEMOGLOBIN 29.7 pg (27.0-33.4); MEAN CORPUSCULAR HGB CONC 33.2 g/dL (32.0-36.0); MEAN CORPUSCULAR VOLUME 89 fl (80-97); MONOCYTES % (AUTO) 10.8 % (3-13); PLATELET COUNT 300 10^3/uL (150-450); RED BLOOD COUNT 4.47 10^6/uL (3.72-5.28); RED CELL DISTRIBUTION WIDTH 14.1 % (11.5-14.0); TOTAL CELLS COUNTED % (AUTO) 100 %; WHITE BLOOD COUNT 17.5 10^3/uL (4.0-10.5)
[2018-08-29 09:02] LABS: HEMOGLOBIN 13.3 g/dL (12.0-15.5)
[2018-08-29 09:07] LABS: ANION GAP 7 (5-19); BLOOD UREA NITROGEN 13 mg/dL (7-20); CALCIUM 8.7 mg/dL (8.4-10.2); CARBON DIOXIDE 27 mmol/L (22-30); CHLORIDE 104 mmol/L (98-107); GLUCOSE 95 mg/dL (75-110); POTASSIUM 3.9 mmol/L (3.6-5.0)
--- NOTE | 2018-08-29 09:20 | PDOC CONSULTATION ---
Consultation Consult Date: 08/29/18 Consult reason:: diverticulitis History of Present Illness Admission Date/PCP: 08/29/18 03:02 KAMERON EASTMAN MD Patient complains of: abdominal pains History of Present Illness: MIGUEL BRENNER is a 52 year old female with history of previous diverticulitis c/o off and on abdominal pains for the past week. Yesterday am c/o severe abdominal pains and went to ED where a CT scan of the abdomen showed ascending and descending colon diverticulitis with microperforation. Has associated N/V and chills. Denies any constipation or diarrhea. Haad regular BM yesterday. Previous diverticulitis were mild and just seen in ED and sent home with po antibiotics. Past Medical History Cardiac Medical History: Reports: Hyperlipidema, Hypertension Denies: Coronary Artery Disease, Myocardial Infarction Pulmonary Medical History: Denies: Asthma, Bronchitis, Chronic Obstructive Pulmonary Disease (COPD), Pneumonia Neurological Medical History: Denies: Seizures GI Medical History: Reports: Diverticulitis Musculoskeltal Medical History: Denies: Arthritis Hematology: Denies: Anemia Past Surgical History Past Surgical History: Reports: Orthopedic Surgery - left hip, Tubal Ligation Denies: Pacemaker Social History Lives with: Spouse/Significant other Smoking Status: Current Every Day Smoker Cigarettes Packs Per Day: 0.5 Number of Years Smokin Last Time Smoked: 08/28/2018 Frequency of Alcohol Use: Occasional Hx Recreational Drug Use: No Drugs: None Hx Prescription Drug Abuse: No - Advance Directive Resuscitation Status: Full Code Family History Family History: Hypertension Parental Family History Reviewed: Yes Children Family History Reviewed: No Sibling(s) Family History Reviewed.: No Medication/Allergy Allergies/Adverse Reactions: Quinolones Allergy (Severe, Verified 08/12/17 16:27) Hives ofloxacin [From Floxin] Allergy (Verified 08/12/17 16:27) Hives Review of Systems Constitutional: PRESENT: as per HPI Eyes: PRESENT: other - no visual/hearing changes Cardiovascular: PRESENT: other - no chest pains/cough Gastrointestinal: PRESENT: abdominal pain, nausea, vomiting Genitourinary: PRESENT: other - no dysuria Physical Exam Vital Signs: Temp Pulse Resp BP Pulse Ox 98.4 F 67 18 93/50 L 93 08/29/18 08:12 08/29/18 08:12 08/29/18 08:12 08/29/18 08:12 08/29/18 08:12 Intake & Output 08/28/18 08/29/18 08/30/18 06:59 06:59 06:59 Intake Total 1350 Output Total 175 Balance 1175 Weight 97 kg General appearance: PRESENT: mild distress Head exam: PRESENT: atraumatic Mouth exam: PRESENT: moist Neck exam: PRESENT: full ROM Respiratory exam: PRESENT: clear to auscultation marianna Cardiovascular exam: PRESENT: RRR Pulses: PRESENT: normal radial pulses Vascular exam: PRESENT: normal capillary refill GI/Abdominal exam: PRESENT: soft, tenderness - both upper quadrants Rectal exam: PRESENT: deferred Extremities exam: PRESENT: full ROM Musculoskeletal exam: PRESENT: ambulatory Neurological exam: PRESENT: alert, oriented to person, oriented to place, oriented to time, oriented to situation Psychiatric exam: PRESENT: appropriate affect Skin exam: PRESENT: normal color, warm Results Laboratory Results: 08/29/18 08:18 08/28/18 08/28/18 08/28/18 17:30 17:30 17:30 WBC 20.2 H RBC 5.22 Hgb 15.5 Hct 46.2 MCV 89 MCH 29.7 MCHC 33.5 RDW 14.3 H Plt Count 356 Seg Neutrophils % Not Reportable Lymphocytes % Not Reportable Monocytes % Not Reportable Eosinophils % Not Reportable Basophils % Not Reportable Absolute Neutrophils Not Reportable Absolute Lymphocytes Not Reportable Absolute Monocytes Not Reportable Absolute Eosinophils Not Reportable Absolute Basophils Not Reportable Sodium Cancelled Potassium Cancelled Chloride Cancelled Carbon Dioxide Cancelled Anion Gap Cancelled BUN Cancelled Creatinine Cancelled Est GFR ( Amer) Cancelled Est GFR (Non-Af Amer) Cancelled Glucose Cancelled Calcium Cancelled Total Bilirubin Cancelled AST Cancelled ALT Cancelled Alkaline Phosphatase Cancelled Total Protein Cancelled Albumin Cancelled Lipase Cancelled Urine Color YELLOW Urine Appearance CLEAR Urine pH 7.0 Ur Specific [place] 1.012 Urine Protein NEGATIVE Urine Glucose (UA) NEGATIVE Urine Ketones NEGATIVE Urine Blood NEGATIVE Urine Nitrite NEGATIVE Ur Leukocyte Esterase TRACE H Urine WBC (Auto) 4 Urine RBC (Auto) 1 08/28/18 08/28/18 08/29/18 18:25 20:45 08:18 WBC 17.5 H RBC 4.47 Hgb 13.3 D Hct 40.0 MCV 89 MCH 29.7 MCHC 33.2 RDW 14.1 H Plt Count 300 Seg Neutrophils % 80.0 H Lymphocytes % 8.4 L Monocytes % 10.8 Eosinophils % 0.4 Basophils % 0.4 Absolute Neutrophils 14.0 H Absolute Lymphocytes 1.5 Absolute Monocytes 1.9 H Absolute Eosinophils 0.1 Absolute Basophils 0.1 Sodium Cancelled 138.2 Potassium Cancelled 4.8 Chloride Cancelled 102 Carbon Dioxide Cancelled 27 Anion Gap Cancelled 9 BUN Cancelled 15 Creatinine Cancelled 0.83 Est GFR ( Amer) Cancelled > 60 Est GFR (Non-Af Amer) Cancelled > 60 Glucose Cancelled 104 Calcium Cancelled 9.8 Total Bilirubin Cancelled 0.7 AST Cancelled 21 ALT Cancelled 21 Alkaline Phosphatase Cancelled 91 Total Protein Cancelled 7.2 Albumin Cancelled 3.9 Lipase Cancelled 422.0 H Urine Color Urine Appearance Urine pH Ur Specific [place] Urine Protein Urine Glucose (UA) Urine Ketones Urine Blood Urine Nitrite Ur Leukocyte Esterase Urine WBC (Auto) Urine RBC (Auto) Impressions: Abdomen/Pelvis CT 08/28/18 22:15 IMPRESSION: 1. Acute diverticulitis with microperforation involving the splenic flexure and descending colon. 2. No drainable fluid collection. Assessment & Plan - Diagnosis (1) Abdominal pain Is this a current diagnosis for this admission?: Yes (2) Diverticulitis large intestine Qualifiers: Diverticulitis bleeding: without bleeding Diverticulitis complication: with perforation and without abscess Qualified Code(s): K57.20 - Diverticulitis of large intestine with perforation and abscess without bleeding Is this a current diagnosis for this admission?: Yes (3) Hypertension Is this a current diagnosis for this admission?: Yes - Time Time Spent: 30 to 50 Minutes - Inpatient Certification Medical Necessity: Need Close Monitoring Due to Risk of Patient Decompensation, Need For IV Fluids, Need for IV Antibiotics, Risk of Complication if Not Cared For in Hospital - Plan Summary Plan Summary: Patient feels better this am but still with abdominal crampy pains. No N/V. No BM yet Recommendation: 1) Continue IV antibiotics and hydration 2) Bowel rest Will follow with you
[2018-08-29] MEDS ORDERED: MORPHINE SULFATE 10 MG/ML INJ IV PRN ×2 (12:28→17:42)
--- NOTE | 2018-08-29 17:49 | Progress Note ---
Provider Note Provider Note: MIGUEL BRENNER is a 52 year old female with a past medical history of hypertension, dyslipidemia, rosacea and recurrent diverticulitis who was admitted school services officer 08/29/18 by the Shipping Clerk Packing for diverticulitis with perforation but without abscess formation. Patient's overnight events, laboratory and imaging results, and vital signs reviewed. Agree with plan of care as established by the previous provider. (1) Diverticulitis large intestine CT ABD/Pelvis demonstrated Acute diverticulitis with microperforation involving the splenic flexure and descending colon. Blood cultures are pending. Leukocytosis has trended down slightly; 20->17. Patient is afebrile. Patient is admitted to [facility] on continuous cardiac telemetry. Provided IV fluids and empirically placed on IV imipenem and metronidazole. N.p.o. status. Surgery has been consulted; appreciate their evaluation recommendations. Antiemetics and analgesics as needed. (2) Hypertension Patient reports a history of hypertension, however, has been hypotensive today (he is without tachycardia); likely secondary to IV morphine as the patient is opiate mary. IV hydralazine as needed for blood pressure control. Holding oral anti-secondary to hypertensives need for bowel rest. (3) Abdominal pain Secondary to #1, continue as needed IV Toradol with IV fentanyl for breakthrough pain. Carryover ordered from the emergency department (morphine 6 mg IV every 2 hours has been discontinued secondary to hypotension). Heparin for DVT prophylaxis. Protonix as needed for PUD prophylaxis.
[2018-08-29] MEDS ORDERED: NORMAL SALINE 1000 ML 1,000 ML IV ONE (23:15)
[2018-08-29] MEDS ORDERED: NORMAL SALINE 1000 ML 1,000 ML IV SCH ×2 (23:15)
[2018-08-30] MEDS: IMIPENEM/CILASTATIN SODIUM 1,000 MG in NORMAL SALINE 250 ML IV SCH ×4 (04:25→21:24)
[2018-08-30] MEDS: HEPARIN SOD (PORCINE) 5,000 UNIT/ML 1 ML SYRINGE SUBCUT SCH ×3 (06:22→21:24)
[2018-08-30 06:36] LABS: ABSOLUTE EOSINOPHILS # (AUTO) 0.1 10^3/uL (0.0-0.6); ABSOLUTE LYMPHOCYTES (AUTO) 1.7 10^3/uL (0.5-4.7); ABSOLUTE MONOCYTES (AUTO) 1.1 10^3/uL (0.1-1.4); ABSOLUTE NEUT (AUTO) 9.8 10^3/uL (1.7-8.2); BASOPHILS % (AUTO) 0.3 % (0-2); EOSINOPHILS % (AUTO) 0.8 % (0-6); HEMATOCRIT 38.1 % (36.0-47.0); HEMOGLOBIN 12.6 g/dL (12.0-15.5); LYMPHOCYTES % (AUTO) 13.2 % (13-45); MEAN CORPUSCULAR HEMOGLOBIN 29.6 pg (27.0-33.4); MEAN CORPUSCULAR HGB CONC 33.1 g/dL (32.0-36.0); MEAN CORPUSCULAR VOLUME 89 fl (80-97); MONOCYTES % (AUTO) 8.8 % (3-13); PLATELET COUNT 297 10^3/uL (150-450); RED BLOOD COUNT 4.27 10^6/uL (3.72-5.28); RED CELL DISTRIBUTION WIDTH 14.7 % (11.5-14.0); SEGMENTED NEUTROPHILS % (AUTO) 76.9 % (42-78); TOTAL CELLS COUNTED % (AUTO) 100 %; WHITE BLOOD COUNT 12.7 10^3/uL (4.0-10.5)
[2018-08-30 06:56] LABS: ANION GAP 7 (5-19); BLOOD UREA NITROGEN 15 mg/dL (7-20); CALCIUM 8.3 mg/dL (8.4-10.2); CARBON DIOXIDE 22 mmol/L (22-30); CHLORIDE 111 mmol/L (98-107); POTASSIUM 4.2 mmol/L (3.6-5.0); SODIUM 140.4 mmol/L (137-145)
[2018-08-30 07:04] LABS: GLUCOSE 67 mg/dL (75-110)
[2018-08-30] MEDS ORDERED: DEXTROSE 50%-WATER 25 GM/50 ML DISP.SYRIN IV PRN ×2 (07:26)
[2018-08-30] MEDS ORDERED: DEXTROSE 40% GEL 15 GM TUBE PO PRN ×2 (07:26)
[2018-08-30] MEDS ORDERED: GLUCAGON,HUMAN RECOMB 1 MG INJ IM PRN (07:26)
[2018-08-30] MEDS ORDERED: DEXTROSE 5%-NORMAL SALINE 1,000 ML IV PRN (07:30)
--- NOTE | 2018-08-30 08:05 | PDOC PROGRESS REPORT ---
Subjective Progress Note for:: 08/30/18 Subjective:: feels better, pain minimal Reason For Visit: ACUTE DIVERTIC W MICRO PERF, INTRACTABLE ABD PAIN Physical Exam Vital Signs: Temp Pulse Resp BP Pulse Ox 98.2 F 70 20 97/60 L 90 L 08/30/18 04:16 08/30/18 04:16 08/30/18 04:16 08/30/18 04:16 08/30/18 04:16 Intake & Output 08/29/18 08/30/18 08/31/18 06:59 06:59 06:59 Intake Total 1350 4946 Output Total 175 700 Balance 1175 4246 Weight 97 kg 99.4 kg General appearance: PRESENT: no acute distress Head exam: PRESENT: normocephalic Eye exam: PRESENT: EOMI Mouth exam: PRESENT: moist Neck exam: PRESENT: full ROM Respiratory exam: PRESENT: clear to auscultation marianna Cardiovascular exam: PRESENT: RRR Pulses: PRESENT: normal radial pulses, normal femoral pulses Vascular exam: PRESENT: normal capillary refill GI/Abdominal exam: PRESENT: soft, other - obese, soft, min tenderness no reboound tenderness Rectal exam: PRESENT: deferred Extremities exam: PRESENT: full ROM Musculoskeletal exam: PRESENT: full ROM Neurological exam: PRESENT: alert, awake, oriented to person, oriented to place, oriented to time Skin exam: PRESENT: dry - abd softer, min tenderness., passing some flatus wbc trending down will start clears cont iv abx. Results Laboratory Results: 08/30/18 05:20 08/30/18 05:20 08/29/18 08/29/18 08/30/18 08:18 08:18 05:20 WBC 17.5 H 12.7 H RBC 4.47 4.27 Hgb 13.3 D 12.6 Hct 40.0 38.1 MCV 89 89 MCH 29.7 29.6 MCHC 33.2 33.1 RDW 14.1 H 14.7 H Plt Count 300 297 Seg Neutrophils % 80.0 H 76.9 Lymphocytes % 8.4 L 13.2 Monocytes % 10.8 8.8 Eosinophils % 0.4 0.8 Basophils % 0.4 0.3 Absolute Neutrophils 14.0 H 9.8 H Absolute Lymphocytes 1.5 1.7 Absolute Monocytes 1.9 H 1.1 Absolute Eosinophils 0.1 0.1 Absolute Basophils 0.1 0.0 Sodium 138.0 Potassium 3.9 Chloride 104 Carbon Dioxide 27 Anion Gap 7 BUN 13 Creatinine 0.90 Est GFR ( Amer) > 60 Est GFR (Non-Af Amer) > 60 Glucose 95 Calcium 8.7 08/30/18 05:20 WBC RBC Hgb Hct MCV MCH MCHC RDW Plt Count Seg Neutrophils % Lymphocytes % Monocytes % Eosinophils % Basophils % Absolute Neutrophils Absolute Lymphocytes Absolute Monocytes Absolute Eosinophils Absolute Basophils Sodium 140.4 Potassium 4.2 Chloride 111 H Carbon Dioxide 22 Anion Gap 7 BUN 15 Creatinine 0.68 Est GFR ( Amer) > 60 Est GFR (Non-Af Amer) > 60 Glucose 67 L Calcium 8.3 L Impressions: Abdomen/Pelvis CT 08/28/18 22:15 IMPRESSION: 1. Acute diverticulitis with microperforation involving the splenic flexure and descending colon. 2. No drainable fluid collection.
[2018-08-30] MEDS: PANTOPRAZOLE SODIUM 40 MG VIAL IV SCH (09:38)
--- NOTE | 2018-08-30 16:12 | PDOC PROGRESS REPORT ---
Subjective Progress Note for:: 08/30/18 Subjective:: MIGUEL BRENNER is a 52 year old female with a past medical history of hypertension, dyslipidemia, rosacea and recurrent diverticulitis who was admitted early childhood education worker 08/29/18 by the Jr. Systems Administrator for diverticulitis with perforation but without abscess formation. Hx of the same. Patient was seen on morning rounds. She is found sitting upright in the edge of the bed comfortably on room air couple days. She reports that she is feeling significantly better today. She only has mild discomfort, no nausea, and it is encouraged that she is now passing small amounts of gas. Has not yet had a bowel movement. She is pleased that surgery is advance her diet to clear liquids and is hopeful that this means that she will be discharged home within the next day or 2. She denies fever, chills, chest pain, palpitations, dyspnea, orthopnea, cough. She has no other questions or concerns. No concerns per nursing. Reason For Visit: ACUTE DIVERTIC W MICRO PERF, INTRACTABLE ABD PAIN Physical Exam Vital Signs: Temp Pulse Resp BP Pulse Ox 98.3 F 80 16 116/69 96 08/30/18 12:37 08/30/18 13:15 08/30/18 13:15 08/30/18 12:37 08/30/18 13:15 Intake & Output 08/29/18 08/30/18 08/31/18 06:59 06:59 06:59 Intake Total 1350 4946 736 Output Total 175 700 975 Balance 1175 4246 -239 Weight 97 kg 99.4 kg General appearance: PRESENT: no acute distress, cooperative, obese, well- developed, well-nourished Head exam: PRESENT: atraumatic, normocephalic Eye exam: PRESENT: conjunctiva pink, EOMI, PERRLA. ABSENT: scleral icterus Mouth exam: PRESENT: moist, tongue midline Neck exam: ABSENT: carotid bruit, JVD, lymphadenopathy, thyromegaly Respiratory exam: PRESENT: clear to auscultation marianna, symmetrical, unlabored. ABSENT: rales, rhonchi, wheezes Cardiovascular exam: PRESENT: RRR. ABSENT: diastolic murmur, rubs, systolic murmur Pulses: PRESENT: normal dorsalis pedis pul Vascular exam: PRESENT: normal capillary refill GI/Abdominal exam: PRESENT: normal bowel sounds, soft, tenderness. ABSENT: distended, guarding, mass, organolmegaly, rebound Rectal exam: PRESENT: deferred Extremities exam: PRESENT: full ROM. ABSENT: calf tenderness, clubbing, pedal edema Neurological exam: PRESENT: alert, awake, oriented to person, oriented to place, oriented to time, oriented to situation, CN II-XII grossly intact. ABSENT: mo tor sensory deficit Psychiatric exam: PRESENT: appropriate affect, normal mood. ABSENT: homicidal ideation, suicidal ideation Skin exam: PRESENT: dry, intact, warm. ABSENT: cyanosis, rash Results Laboratory Results: 08/30/18 05:20 08/30/18 05:20 08/30/18 08/30/18 05:20 05:20 WBC 12.7 H RBC 4.27 Hgb 12.6 Hct 38.1 MCV 89 MCH 29.6 MCHC 33.1 RDW 14.7 H Plt Count 297 Seg Neutrophils % 76.9 Lymphocytes % 13.2 Monocytes % 8.8 Eosinophils % 0.8 Basophils % 0.3 Absolute Neutrophils 9.8 H Absolute Lymphocytes 1.7 Absolute Monocytes 1.1 Absolute Eosinophils 0.1 Absolute Basophils 0.0 Sodium 140.4 Potassium 4.2 Chloride 111 H Carbon Dioxide 22 Anion Gap 7 BUN 15 Creatinine 0.68 Est GFR ( Amer) > 60 Est GFR (Non-Af Amer) > 60 Glucose 67 L Calcium 8.3 L 08/28/18 17:30 Clean Catch Midstream Urine Culture - Final Mixed Urogenital Jacquie Impressions: Abdomen/Pelvis CT 08/28/18 22:15 IMPRESSION: 1. Acute diverticulitis with microperforation involving the splenic flexure and descending colon. 2. No drainable fluid collection. Assessment and Plan - Diagnosis (1) Diverticulitis large intestine Qualifiers: Diverticulitis bleeding: without bleeding Diverticulitis complication: with perforation and without abscess Qualified Code(s): K57.20 - Diverticulitis of large intestine with perforation and abscess without bleeding Is this a current diagnosis for this admission?: Yes Plan: CT ABD/Pelvis demonstrated Acute diverticulitis with microperforation involving the splenic flexure and descending colon. Blood cultures are pending. Leukocytosis has trended down; 20->17-> 12.7. Patient is afebrile, pain improved, nausea resolved. Passing gas. Patient is admitted to [facility] on continuous cardiac telemetry. Provided IV fluids and empirically placed on IV imipenem and metronidazole. Advnaced to clears per surgery. Surgery has been consulted; appreciate their evaluation recommendations. Antiemetics and analgesics as needed. (2) Abdominal pain Is this a current diagnosis for this admission?: Yes Plan: Improved; has required minimal anelgesics today. Secondary to #1, continue as needed IV Toradol with IV fentanyl for breakthrough pain. (3) Hypertension Is this a current diagnosis for this admission?: Yes Plan: Patient reports a history of hypertension. Normotensive today. IV hydralazine as needed for blood pressure control. Holding oral anti-secondary to hypertensives need for bowel rest and normotensive pressure. (4) Morbid obesity with BMI of 40.0-44.9, adult Is this a current diagnosis for this admission?: Yes Plan: Dietary discretion and lifestyle modification is advised. - Time Time Spent with patient: 15-24 minutes Medications reviewed and adjusted accordingly: Yes Anticipated discharge: Home Within: within 48 hours
[2018-08-31] MEDS: IMIPENEM/CILASTATIN SODIUM 1,000 MG in NORMAL SALINE 250 ML IV SCH ×4 (03:21→21:16)
[2018-08-31] MEDS: HEPARIN SOD (PORCINE) 5,000 UNIT/ML 1 ML SYRINGE SUBCUT SCH ×3 (06:30→21:16)
[2018-08-31 08:33] LABS: ABSOLUTE BASOPHILS # (AUTO) 0.1 10^3/uL (0.0-0.2); ABSOLUTE EOSINOPHILS # (AUTO) 0.1 10^3/uL (0.0-0.6); ABSOLUTE LYMPHOCYTES (AUTO) 1.5 10^3/uL (0.5-4.7); ANION GAP 5 (5-19); BASOPHILS % (AUTO) 0.5 % (0-2); BLOOD UREA NITROGEN 13 mg/dL (7-20); CALCIUM 9.1 mg/dL (8.4-10.2); CARBON DIOXIDE 22 mmol/L (22-30); CHLORIDE 113 mmol/L (98-107); EOSINOPHILS % (AUTO) 1.3 % (0-6); GLUCOSE 78 mg/dL (75-110); HEMOGLOBIN 13.5 g/dL (12.0-15.5); LYMPHOCYTES % (AUTO) 14.1 % (13-45); MEAN CORPUSCULAR HEMOGLOBIN 29.8 pg (27.0-33.4); MEAN CORPUSCULAR HGB CONC 33.6 g/dL (32.0-36.0); MEAN CORPUSCULAR VOLUME 89 fl (80-97); MONOCYTES % (AUTO) 9.5 % (3-13); PLATELET COUNT 324 10^3/uL (150-450); POTASSIUM 4.2 mmol/L (3.6-5.0); RED BLOOD COUNT 4.53 10^6/uL (3.72-5.28); RED CELL DISTRIBUTION WIDTH 13.9 % (11.5-14.0); SEGMENTED NEUTROPHILS % (AUTO) 74.6 % (42-78); SODIUM 140.3 mmol/L (137-145); TOTAL CELLS COUNTED % (AUTO) 100 %; WHITE BLOOD COUNT 10.7 10^3/uL (4.0-10.5)
[2018-08-31] MEDS: PANTOPRAZOLE SODIUM 40 MG VIAL IV SCH (09:53)
--- NOTE | 2018-08-31 12:21 | PDOC PROGRESS REPORT ---
Subjective Progress Note for:: 08/31/18 Subjective:: MIGUEL BRENNER is a 52 year old female with a past medical history of hypertension, dyslipidemia, rosacea and recurrent diverticulitis who was admitted business systems analyst 08/29/18 by the Urgent Care Nurse Practitioner for diverticulitis with perforation but without abscess formation. Hx of the same. Patient was seen on morning rounds. She is found sitting upright in the edge of the bed comfortably on room air.. She reports that she is feeling significantly better today. She only has mild discomfort, no nausea or vomiting. (+) large bm this morning with subsequent relief of abdominal discomfort. Diet advanced to full liquids today; hopeful to go home tomorrow. She denies fever, chills, chest pain, palpitations, dyspnea, orthopnea, cough. She has no other questions or concerns. No concerns per nursing. Reason For Visit: ACUTE DIVERTIC W MICRO PERF, INTRACTABLE ABD PAIN Physical Exam Vital Signs: Temp Pulse Resp BP Pulse Ox 98.4 F 57 L 18 129/78 H 97 08/31/18 07:54 08/31/18 07:54 08/31/18 07:54 08/31/18 07:54 08/31/18 07:54 Intake & Output 08/30/18 08/31/18 09/01/18 06:59 06:59 06:59 Intake Total 4946 2508 250 Output Total 700 2625 Balance 4246 -117 250 Weight 99.4 kg 99 kg General appearance: PRESENT: no acute distress, cooperative, obese, well- developed, well-nourished Head exam: PRESENT: atraumatic, normocephalic Eye exam: PRESENT: conjunctiva pink, EOMI, PERRLA. ABSENT: scleral icterus Mouth exam: PRESENT: moist, tongue midline Respiratory exam: PRESENT: clear to auscultation marianna, symmetrical, unlabored. ABSENT: rales, rhonchi, wheezes Cardiovascular exam: PRESENT: RRR. ABSENT: diastolic murmur, rubs, systolic murmur Pulses: PRESENT: normal dorsalis pedis pul Vascular exam: PRESENT: normal capillary refill GI/Abdominal exam: PRESENT: hyperactive bowel sounds, normal bowel sounds, soft, tenderness. ABSENT: distended, guarding, mass, organolmegaly, rebound Rectal exam: PRESENT: deferred Extremities exam: PRESENT: full ROM. ABSENT: calf tenderness, clubbing, pedal edema Neurological exam: PRESENT: alert, awake, oriented to person, oriented to place, oriented to time, oriented to situation, CN II-XII grossly intact. ABSENT: motor sensory deficit Psychiatric exam: PRESENT: appropriate affect, normal mood. ABSENT: homicidal ideation, suicidal ideation Skin exam: PRESENT: dry, intact, warm. ABSENT: cyanosis, rash Results Laboratory Results: 08/31/18 07:27 08/31/18 07:27 08/31/18 08/31/18 07:27 07:27 WBC 10.7 H RBC 4.53 Hgb 13.5 Hct 40.0 MCV 89 MCH 29.8 MCHC 33.6 RDW 13.9 Plt Count 324 Seg Neutrophils % 74.6 Lymphocytes % 14.1 Monocytes % 9.5 Eosinophils % 1.3 Basophils % 0.5 Absolute Neutrophils 8.0 Absolute Lymphocytes 1.5 Absolute Monocytes 1.0 Absolute Eosinophils 0.1 Absolute Basophils 0.1 Sodium 140.3 Potassium 4.2 Chloride 113 H Carbon Dioxide 22 Anion Gap 5 BUN 13 Creatinine 0.77 Est GFR ( Amer) > 60 Est GFR (Non-Af Amer) > 60 Glucose 78 Calcium 9.1 08/28/18 17:30 Clean Catch Midstream Urine Culture - Final Mixed Urogenital Jacquie Impressions: Abdomen/Pelvis CT 08/28/18 22:15 IMPRESSION: 1. Acute diverticulitis with microperforation involving the splenic flexure and descending colon. 2. No drainable fluid collection. Assessment and Plan - Diagnosis (1) Diverticulitis large intestine Qualifiers: Diverticulitis bleeding: without bleeding Diverticulitis complication: with perforation and without abscess Qualified Code(s): K57.20 - Diverticulitis of large intestine with perforation and abscess without bleeding Is this a current diagnosis for this admission?: Yes Plan: CT ABD/Pelvis demonstrated Acute diverticulitis with microperforation involving the splenic flexure and descending colon. Blood cultures are negative at 48 hours. Leukocytosis has trended down; 20->17-> 12.7-> 10. Patient is afebrile, pain improved, nausea resolved. Passing gas, (+) bm today. Patient is admitted to [facility] on continuous cardiac telemetry. Provided IV fluids and empirically placed on IV imipenem; plan to transition to p.o cipro and metronidazole at discharge. Advanced to clears per surgery. Surgery has been consulted; appreciate their evaluation recommendations. Antiemetics and analgesics as needed. (2) Abdominal pain Is this a current diagnosis for this admission?: Yes Plan: Improved; no analgesics required >24 hrs Secondary to #1, continue as needed IV Toradol with IV fentanyl for breakthrough pain. (3) Hypertension Is this a current diagnosis for this admission?: Yes Plan: Patient reports a history of hypertension. We will resume patient home dose Benicar 40/25 today. IV hydralazine as needed for blood pressure control. Low-sodium diet. (4) Morbid obesity with BMI of 40.0-44.9, adult Is this a current diagnosis for this admission?: Yes Plan: Dietary discretion and lifestyle modification is advised. - Time Time Spent with patient: 15-24 minutes Medications reviewed and adjusted accordingly: Yes Anticipated discharge: Home Within: within 24 hours
[2018-08-31] MEDS: KETOROLAC TROMETHAMINE INJ/PF 30 MG/1 ML SDV IV PRN (17:32)
--- NOTE | 2018-08-31 20:02 | PDOC PROGRESS REPORT ---
Subjective Progress Note for:: 08/31/18 Subjective:: Less pains. Has BM and Flatus Reason For Visit: ACUTE DIVERTIC W MICRO PERF, INTRACTABLE ABD PAIN Physical Exam Vital Signs: Temp Pulse Resp BP Pulse Ox 98.6 F 58 L 18 138/75 H 94 08/31/18 16:28 08/31/18 16:28 08/31/18 16:28 08/31/18 16:28 08/31/18 16:28 Intake & Output 08/30/18 08/31/18 09/01/18 06:59 06:59 06:59 Intake Total 4946 2508 2109 Output Total 700 2625 800 Balance 4246 -117 1309 Weight 99.4 kg 99 kg Exam: abdomen is soft wit minimal upper abdominal tenderness Results Laboratory Results: 08/31/18 07:27 08/31/18 07:27 08/31/18 08/31/18 07:27 07:27 WBC 10.7 H RBC 4.53 Hgb 13.5 Hct 40.0 MCV 89 MCH 29.8 MCHC 33.6 RDW 13.9 Plt Count 324 Seg Neutrophils % 74.6 Lymphocytes % 14.1 Monocytes % 9.5 Eosinophils % 1.3 Basophils % 0.5 Absolute Neutrophils 8.0 Absolute Lymphocytes 1.5 Absolute Monocytes 1.0 Absolute Eosinophils 0.1 Absolute Basophils 0.1 Sodium 140.3 Potassium 4.2 Chloride 113 H Carbon Dioxide 22 Anion Gap 5 BUN 13 Creatinine 0.77 Est GFR ( Amer) > 60 Est GFR (Non-Af Amer) > 60 Glucose 78 Calcium 9.1 Impressions: Abdomen/Pelvis CT 08/28/18 22:15 IMPRESSION: 1. Acute diverticulitis with microperforation involving the splenic flexure and descending colon. 2. No drainable fluid collection. Assessment & Plan - Diagnosis (1) Abdominal pain Is this a current diagnosis for this admission?: Yes (2) Diverticulitis large intestine Qualifiers: Diverticulitis bleeding: without bleeding Diverticulitis complication: with perforation and without abscess Qualified Code(s): K57.20 - Diverticulitis of large intestine with perforation and abscess without bleeding Is this a current diagnosis for this admission?: Yes (3) Hypertension Is this a current diagnosis for this admission?: Yes - Time Time Spent with patient: 15-24 minutes - Inpatient Certification Medical Necessity: Need for IV Antibiotics - Plan Summary Plan Summary: OK to increase diet to full liquids and increase to soft tomorrow if continues to improve Continue IV antibiotics Will sign off. Call for any questions. We can follow her in the surgical clinic in 3-4 weeks
[2018-09-01] MEDS: KETOROLAC TROMETHAMINE INJ/PF 30 MG/1 ML SDV IV PRN (03:24)
[2018-09-01] MEDS: IMIPENEM/CILASTATIN SODIUM 1,000 MG in NORMAL SALINE 250 ML IV SCH ×2 (03:26→09:23)
[2018-09-01 05:01] LABS: ABSOLUTE BASOPHILS # (AUTO) 0.1 10^3/uL (0.0-0.2); ABSOLUTE EOSINOPHILS # (AUTO) 0.2 10^3/uL (0.0-0.6); ABSOLUTE LYMPHOCYTES (AUTO) 2.2 10^3/uL (0.5-4.7); ABSOLUTE MONOCYTES (AUTO) 1.2 10^3/uL (0.1-1.4); ABSOLUTE NEUT (AUTO) 7.6 10^3/uL (1.7-8.2); BASOPHILS % (AUTO) 0.8 % (0-2); EOSINOPHILS % (AUTO) 1.9 % (0-6); HEMATOCRIT 38.8 % (36.0-47.0); HEMOGLOBIN 12.9 g/dL (12.0-15.5); LYMPHOCYTES % (AUTO) 19.1 % (13-45); MEAN CORPUSCULAR HEMOGLOBIN 29.1 pg (27.0-33.4); MEAN CORPUSCULAR HGB CONC 33.3 g/dL (32.0-36.0); MEAN CORPUSCULAR VOLUME 87 fl (80-97); MONOCYTES % (AUTO) 10.9 % (3-13); PLATELET COUNT 308 10^3/uL (150-450); RED BLOOD COUNT 4.44 10^6/uL (3.72-5.28); RED CELL DISTRIBUTION WIDTH 14.1 % (11.5-14.0); SEGMENTED NEUTROPHILS % (AUTO) 67.3 % (42-78); TOTAL CELLS COUNTED % (AUTO) 100 %; WHITE BLOOD COUNT 11.3 10^3/uL (4.0-10.5)
[2018-09-01 05:35] LABS: ANION GAP 5 (5-19); BLOOD UREA NITROGEN 13 mg/dL (7-20); CALCIUM 9.1 mg/dL (8.4-10.2); CARBON DIOXIDE 22 mmol/L (22-30); CHLORIDE 113 mmol/L (98-107); GLUCOSE 86 mg/dL (75-110); SODIUM 139.6 mmol/L (137-145)
[2018-09-01] MEDS: HEPARIN SOD (PORCINE) 5,000 UNIT/ML 1 ML SYRINGE SUBCUT SCH ×2 (06:04→13:05)
[2018-09-01] MEDS: PANTOPRAZOLE SODIUM 40 MG VIAL IV SCH (09:24)
[2018-09-01] MEDS ORDERED: HYDROCHLOROTHIAZIDE 25 MG TABLET PO SCH (10:00)
[2018-09-01] MEDS ORDERED: (PENDING PHARMACY ID) (Olmesartan/Hydrochlorothiazide [Benicar Hct 40-25 Mg Tablet] 1 TAB) PO SCH (10:00)
[2018-09-01] MEDS ORDERED: LOSARTAN POTASSIUM 50 MG TABLET PO SCH (10:00)
[2018-09-01 12:52] VITALS: BP 123/66
--- NOTE | 2018-09-03 12:42 | PDOC DISCHARGE SUMMARY ---
General - Admit/Disc Date/PCP Admission Date/Primary Care Provider: 08/29/18 03:02 KAMERON EASTMAN MD Discharge Date: 09/01/18 - Discharge Diagnosis (1) Diverticulitis large intestine Is this a current diagnosis for this admission?: Yes Summary: CT ABD/Pelvis demonstrated Acute diverticulitis with microperforation involving the splenic flexure and descending colon. Blood cultures are negative at 48 hours. Leukocytosis has trended down; 20->17-> 12.7-> 10-> 11. Patient is afebrile, pain, nausea and vomiting have resolved. Passing gas, (+) bm daily. Blood cultures are negative at 5 days. Patient was admitted to [facility] on continuous cardiac telemetry. She was provided IV fluids and empirically placed on IV imipenem; she was transitioned to p.o cip ro and metronidazole at discharge to complete a total 10 day course of therapy. Surgery was been consulted; appreciate their evaluation and recommendations. Antiemetics and analgesics were provided as needed for symptomatic control. At time of discharge, the patient is in stable condition, asymptomatic, and tolerating a full liquid diet. She is provided prescriptions for Cipro. Flagyl, Zofran, and Tramadol. She is advised to follow up with her PCP within 1 week and with the [facility] within 3 weeks. She is instructed to drink plenty of water and to advance her diet slowly as tolerated. She is encouraged to return to the emergency department as needed for concerning symptoms. (2) Abdominal pain Is this a current diagnosis for this admission?: Yes Summary: Improved; no analgesics required >48 hrs Secondary to #1 She was provided as needed IV Toradol with IV fentanyl for breakthrough pain. At discharge she is provided a prescription for tramadol as needed. (3) Hypertension Is this a current diagnosis for this admission?: Yes Summary: Patient reports a history of hypertension. Her home antihypertensives were briefly held secondary to soft blood pressures. Her home dose Benicar 40/25 was resumed prior to discharge. Recommend low sodium diet and lifestyle modifications. (4) Morbid obesity with BMI of 40.0-44.9, adult Is this a current diagnosis for this admission?: Yes Summary: Dietary discretion and lifestyle modification is advised. - Additional Information Resuscitation Status: Full Code Discharge Diet: Full Liquids Discharge Activity: Activity As Tolerated, Balance Activity w/Rest, Slowly Increase Activity Prescriptions: Ciprofloxacin HCl [Cipro 500 mg Tablet] 500 mg PO BID #14 tablet Metronidazole [Flagyl 500 mg Tablet] 500 mg PO TID #21 tablet Ondansetron [Zofran Odt 4 mg Tablet] 4 mg PO Q4HP PRN #20 tab.rapdis PRN Reason: Tramadol HCl [Ultram 50 mg Tablet] 50 mg PO Q4HP PRN #20 tab PRN Reason: Home Medications: Aspirin [Adult Low Dose Aspirin EC] 81 mg PO DAILY 08/29/18 Cholecalciferol (Vitamin D3) [Vitamin D3 2000 unit Tablet] 2,000 unit PO DAILY 08/29/18 Multivit-Minerals/Folic Acid [Women's Multivitamin Gummies] 200 mcg PO DAILY 08/29/18 Olmesartan/Hydrochlorothiazide [Benicar Hct 40-25 mg Tablet] 1 tab PO DAILY 08/29/18 Acetaminophen [Tylenol 325 mg Tablet] 650 mg PO Q4HP PRN tablet 09/01/18 Ciprofloxacin HCl [Cipro 500 mg Tablet] 500 mg PO BID #14 tablet 09/01/18 Metronidazole [Flagyl 500 mg Tablet] 500 mg PO TID #21 tablet 09/01/18 Ondansetron [Zofran Odt 4 mg Tablet] 4 mg PO Q4HP PRN #20 tab.rapdis 09/01/18 Tramadol HCl [Ultram 50 mg Tablet] 50 mg PO Q4HP PRN #20 tab 09/01/18 History of Present Illness History of Present Illness: Per H&P by Dr. Leon: MIGUEL BRENNER is a 52 year old female with a past medical history of hypertension, dyslipidemia, rosacea and recurrent diverticulitis. She presents with 48 hours of severe cramping lower abdominal pain. Recognizing the symptoms she is avoided p.o. intake and evaluated in the emergency room found to have leukocytosis, sigmoid colon diverticulitis with microperforation. She started on empiric antibiotics and referred to the hospitalist for admission. She denies significant constipation. Physical Exam Vital Signs: Temp Pulse Resp BP Pulse Ox 97.9 F 55 L 22 H 123/66 92 09/01/18 12:30 09/01/18 12:30 09/01/18 12:30 09/01/18 12:30 09/01/18 12:30 Intake & Output 09/02/18 09/03/18 09/04/18 06:59 06:59 06:59 Intake Total 450 Balance 450 General appearance: PRESENT: no acute distress, cooperative, obese, well- developed, well-nourished Head exam: PRESENT: atraumatic, normocephalic Eye exam: PRESENT: conjunctiva pink, EOMI, PERRLA. ABSENT: scleral icterus Ear exam: PRESENT: normal external ear exam Mouth exam: PRESENT: moist, tongue midline Neck exam: ABSENT: carotid bruit, JVD, lymphadenopathy, thyromegaly Respiratory exam: PRESENT: clear to auscultation marianna, symmetrical, unlabored. ABSENT: rales, rhonchi, wheezes Cardiovascular exam: PRESENT: RRR, +S1, +S2. ABSENT: diastolic murmur, rubs, systolic murmur Pulses: PRESENT: normal dorsalis pedis pul Vascular exam: PRESENT: normal capillary refill GI/Abdominal exam: PRESENT: hyperactive bowel sounds, normal bowel sounds, soft. ABSENT: distended, guarding, mass, organolmegaly, rebound, tenderness Rectal exam: PRESENT: deferred Extremities exam: PRESENT: full ROM. ABSENT: calf tenderness, clubbing, pedal edema Neurological exam: PRESENT: alert, awake, oriented to person, oriented to place, oriented to time, oriented to situation, CN II-XII grossly intact. ABSENT: motor sensory deficit Psychiatric exam: PRESENT: appropriate affect, normal mood. ABSENT: homicidal ideation, suicidal ideation Skin exam: PRESENT: dry, intact, warm. ABSENT: cyanosis, rash Results Laboratory Results: 09/01/18 03:49 09/01/18 03:49 08/29/18 08:18 Blood Blood Culture - Final NO GROWTH IN 5 DAYS 08/29/18 02:50 Blood Blood Culture - Final NO GROWTH IN 5 DAYS Impressions: Abdomen/Pelvis CT 08/28/18 22:15 IMPRESSION: 1. Acute diverticulitis with microperforation involving the splenic flexure and descending colon. 2. No drainable fluid collection. Qualifiers - * PATIENT BEING DISCHARGED WITH ANY OF THE FOLLOWING DIAGNOSIS: No Plan Discharge Plan: Follow up with primary care provider within 1 week. Follow up with the [facility] is 3 weeks. Complete antibiotic course (Cipro and flagyl) Drink plenty of water. Eat a full liquid diet; advance slowly as tolerated. Return to the emergency department as needed for concerning symptoms. Time Spent: Less than 30 Minutes
== END 2018-09-01 14:01 | disposition home or self-care (01) | DRG 392 ==
LOC: ER 16:34 → EH 08-29 03:02 → 3N 08-29 05:03
PROVIDERS: ADMIT Internal Medicine; ATTEND Internal Medicine
PROC: 3E0F73Z Introduction of Anti-inflammatory into Respiratory Tract, Via Natural or Artificial Opening (ICD-10-PCS; principal; 2018-08-29)
DX: K57.20 Diverticulitis of large intestine with perforation and abscess without bleeding (principal); Z68.41 Body mass index [BMI] 40.0-44.9, adult; I10 Essential (primary) hypertension; E66.01 Morbid (severe) obesity due to excess calories; E78.5 Hyperlipidemia, unspecified; L71.9 Rosacea, unspecified; F17.210 Nicotine dependence, cigarettes, uncomplicated; Z79.899 Other long term (current) drug therapy; Z88.3 Allergy status to other anti-infective agents; Z82.49 Family history of ischemic heart disease and other diseases of the circulatory system
CPT/HCPCS: 36415; 74177; 80048; 80053; 81001; 82962; 83690; 85025; 87040; 87086; 96361; 96365; 96368; 96375; 96376; 99285; J0696; J0743; J1644; J1885; J2270; J2405; J7030; J7050; J7620; S0164

== ENCOUNTER → 2018-10-06 | Outpatient (CLI) | payer BC ==
--- NOTE | 2018-10-06 15:49 | RADIOLOGY REPORT (SQ) ---
EXAM DESCRIPTION: BARIUM ENEMA W/AIR COMPLETED DATE/TIME: 10/06/2018 11:17 am REASON FOR STUDY: DIVERTICULITIS (K57.92) K57.92 DVTRCLI OF INTEST, PART UNSP, W/O PERF OR ABSCESS W/O COMPARISON: None. FLUOROSCOPY TIME: 3.1 minutes 16 images saved to PACS. TECHNIQUE: Following retrograde filling of the colon with barium and air, fluoroscopic spot and over head imaging of the colon was obtained and saved to PACS. LIMITATIONS: None. FINDINGS: TOBACCO BALER KUB: Normal abdominal film with adequate bowel prep. CECUM: Normal mucosa without intraluminal filling defects, intrinsic or extrinsic masses, or lesions. Barium filled appendix in distal small bowel identified. ASCENDING COLON: Normal mucosa without intraluminal filling defects, intrinsic or extrinsic masses, o r lesions. Scattered diverticuli seen. TRANSVERSE COLON: Normal mucosa without intraluminal filling defects, intrinsic or extrinsic masses, or lesions. Scattered diverticuli seen. DESCENDING COLON: Normal mucosa without intraluminal filling defects, intrinsic or extrinsic masses, or lesions. Numerous diverticuli seen. SIGMOID COLON: Normal mucosa without intraluminal filling defects, intrinsic or extrinsic masses, or lesions. Numerous diverticuli seen. RECTUM: Normal mucosa without intraluminal filling defects, intrinsic or extrinsic masses, or lesions . POST EVAC: Near complete evacuation of barium with no additional findings. OTHER: No other significant finding. IMPRESSION: NUMEROUS DIVERTICULI SEEN THROUGHOUT THE COLON. OTHERWISE UNREMARKABLE STUDY. COMMENT: None Quality ID [id number]: Final reports for procedures using fluoroscopy that document radiation exposure tino minh, or exposure time and number of fluorographic images (if radiation exposure indices are not avail able) TECHNICAL DOCUMENTATION: JOB ID: [id number] [employer]- All Rights Reserved Reading location - IP/workstation name: [id number]
== END ==
LOC: RAD 09:30
PROVIDERS: ATTEND Surgery
DX: K57.92 Diverticulitis of intestine, part unspecified, without perforation or abscess without bleeding (principal)
CPT/HCPCS: 74280

== ENCOUNTER 2019-11-11 06:43 | Emergency (ER) | payer BC ==
[2019-11-11] MEDS ORDERED: NORMAL SALINE 1000 ML 1,000 ML IV ONE ×2 (07:07→10:39)
[2019-11-11] MEDS ORDERED: ONDANSETRON HCL INJ/PF 4 MG/2 ML SDV IV ONE ×2 (07:07→09:44)
[2019-11-11] MEDS ORDERED: MORPHINE SULFATE 10 MG/ML INJ IV ONE ×2 (07:07→09:44)
[2019-11-11] MEDS ORDERED: ACETAMINOPHEN 650 MG SUPP.RECT PR ONE (07:12)
--- NOTE | 2019-11-11 07:15 | ER Document Report ---
Entered by HANDY KLEIN SCRIBE 11/11/19 0707 Acting as scribe for:AMIRA TAPIA MD ED GI/ - General Chief Complaint: Abdominal Pain Stated Complaint: ABDOMINAL PAIN/CHILLS/FEVER Time Seen by Provider: 11/11/19 06:54 Primary Care Provider: JOLIE GUTIERREZ MD [ACTIVE STAFF] - Follow up as needed Information source: Patient Notes: This 53-year-old female patient presents to the emergency department today with complaints of fevers for the last 4 days with associated abdominal pain which began yesterday around 3 PM. Patient states yesterday she had lower abdominal pain that radiated into her back but today the pain has localized to her right upper quadrant. Patient states she had a normal bowel movement this morning prior to arrival. Patient is postmenopausal. Patient has had some nausea but has not vomited. Patient denies any diarrhea. TRAVEL OUTSIDE OF THE [place] IN LAST 30 DAYS: No - Related Data Allergies/Adverse Reactions: Quinolones Allergy (Severe, Verified 08/12/17 16:27) Hives ofloxacin [From Floxin] Allergy (Verified 08/12/17 16:27) Hives Past Medical History - General Information source: Patient - Social History Smoking Status: Current Every Day Smoker Cigarette use (# per day): Yes Chew tobacco use (# tins/day): No Smoking Education Provided: No Frequency of alcohol use: None Drug Abuse: None Lives with: Family Family History: Reviewed & Not Pertinent, Hypertension - Past Medical History Cardiac Medical History: Reports: Hx Hypercholesterolemia, Hx Hypertension Renal/ Medical History: Reports: Hx Kidney Stones GI Medical History: Reports: Hx Diverticulitis Past Surgical History: Reports: Hx Kidney (Renal Surgery) - Lithotripsy, Hx Orthopedic Surgery - Total left hip replacement, Hx Tubal Ligation - Immunizations Hx Diphtheria, Pertussis, Tetanus Vaccination: Yes Review of Systems - Review of Systems Constitutional: See HPI, Fever EENT: No symptoms reported Cardiovascular: No symptoms reported Respiratory: No symptoms reported Gastrointestinal: See HPI, Abdominal pain - RUQ, Nausea. denies: Diarrhea, Vomiting Genitourinary: No symptoms reported Female Genitourinary: Post menopausal Musculoskeletal: No symptoms reported Skin: No symptoms reported Hematologic/Lymphatic: No symptoms reported Neurological/Psychological: No symptoms reported -: Yes All other systems reviewed and negative Physical Exam - Vital signs Vitals: Temp Pulse Resp BP Pulse Ox 102.1 F H 128 H 22 H 122/95 H 94 11/11/19 06:52 11/11/19 06:52 11/11/19 06:52 11/11/19 06:52 11/11/19 06:52 - Notes Notes: Physical Exam: General: Alert, appears uncomfortable. HEENT: Normocephalic. Atraumatic. PERRL. Extraocular movements intact. Oropharynx clear. Neck: Supple. Non-tender. Respiratory: No respiratory distress. Clear and equal breath sounds bilaterally. Cardiovascular: Regular rate and rhythm. Abdominal: Obese, protuberant abdomen. Dull to percuss. Almost absent bowel sounds. Exquisite tenderness with palpation of the right upper quadrant and epigastrium. Back: No gross abnormalities. Extremities: Moves all four extremities. Upper extremities: Normal inspection. Normal ROM. Lower extremities: Normal inspection. No edema. Normal ROM. Neurological: Normal cognition. AAOx4. Normal speech. Psychological: Normal affect. Normal Mood. Skin: Warm. Dry. Normal color. Course - Re-evaluation Re-evalutation: 11/11/19 11:13 The hospitalist came and spoke with me and said they had changed their minds about admission, and wanted the patient transferred where there was more interventional radiology support. Shortly after this, the nurse came to tell me that the patient's pulse oximetry reading dropped to 85%, and her blood pressure dropped to about 80 systolic. A second liter of normal saline IV bolus was ordered and I called [facility] transfer. I spoke with a Dr. Rosales about the patient. At this time they do not have a non-COVID critical care bed, but stated that if we were able to get her blood pressures up without resorting to pressors, then she would be able to accept her to 1 of the other beds. The plan is to get at least 2 L of IV fluids in the patient, and see how her blood pressure does. - Vital Signs Vital signs: Temp Pulse Resp BP Pulse Ox 98 F 90 25 H 103/63 96 11/11/19 13:21 11/11/19 10:34 11/11/19 13:21 11/11/19 13:21 11/11/19 13:21 - Laboratory Result Diagrams: 11/11/19 07:07 11/11/19 07:07 Laboratory results interpreted by me: 11/11/19 11/11/19 11/11/19 07:07 07:07 07:07 WBC 20.4 H RDW 14.3 H Seg Neuts % (Manual) 80 H Band Neutrophils % 6 H Lymphocytes % (Manual) 1 L Abs Neuts (Manual) 17.5 H Abs Lymphs (Manual) 0.4 L Abs Monocytes (Manual) 2.4 H PT 16.5 H Sodium 135.4 L Est GFR ( Amer) 57 L Est GFR (MDRD) Non-Af 47 L Total Bilirubin 2.7 H Direct Bilirubin 1.4 H AST 79 H ALT 122 H Alkaline Phosphatase 136 H Albumin 3.2 L Urine Blood Urine Urobilinogen 11/11/19 11:49 WBC RDW Seg Neuts % (Manual) Band Neutrophils % Lymphocytes % (Manual) Abs Neuts (Manual) Abs Lymphs (Manual) Abs Monocytes (Manual) PT Sodium Est GFR ( Amer) Est GFR (MDRD) Non-Af Total Bilirubin Direct Bilirubin AST ALT Alkaline Phosphatase Albumin Urine Blood SMALL H Urine Urobilinogen 4.0 H - Diagnostic Test Radiology reviewed: Image reviewed, Reports reviewed - CT scan of the abdomen pelvis and chest shows multiple hypoechoic lesions in the liver suggestive of abscesses. - EKG Interpretation by Me EKG shows normal: Sinus rhythm, [place], Intervals, QRS Complexes, ST-T Waves Rate: Normal - 99 Rhythm: NSR - Consults Fely Silva NP Consulted provider: will come to ER Dr. Gutierrez Consulted provider: other - Concerned that if these liver lesions are abscesses, patient will need to be transferred to a facility with a robust interventional radiology department. Critical Care Note - Critical Care Note Total time excluding time spent on procedures (mins): 50 Comments: At least 50 minutes spent with multiple re-evaluations of this complicated patient who developed septic shock during her work-up. Multiple discussions with general surgeon, hospitalist, locally, hospitalist at [facility], and ICU atten ding at [facility]. Patient received 4 L of IV fluids and required norepinephrine drip to maintain blood pressure. Discharge - Discharge Clinical Impression: Multiple liver lesions, Hepatic abscess Leukocytosis Qualifiers: Leukocytosis type: bandemia Qualified Code(s): D72.825 - Bandemia Fever Qualifiers: Fever type: unspecified Qualified Code(s): R50.9 - Fever, unspecified Condition: Stable Disposition: [facility] Referrals: JOLIE GUTIERREZ MD [ACTIVE STAFF] - Follow up as needed I personally performed the services described in the documentation, reviewed and edited the documentation which was dictated to the scribe in my presence, and it accurately records my words and actions.
[2019-11-11 07:24] LABS: HEMATOCRIT 44.2 % (36.0-47.0); HEMOGLOBIN 14.8 g/dL (12.0-15.5); MEAN CORPUSCULAR HEMOGLOBIN 29.8 pg (27.0-33.4); MEAN CORPUSCULAR HGB CONC 33.6 g/dL (32.0-36.0); MEAN CORPUSCULAR VOLUME 89 fl (80-97); PLATELET COUNT 248 10^3/uL (150-450); RED BLOOD COUNT 4.98 10^6/uL (3.72-5.28); RED CELL DISTRIBUTION WIDTH 14.3 % (11.5-14.0); WHITE BLOOD COUNT 20.4 10^3/uL (4.0-10.5)
[2019-11-11 07:46] LABS: ABSOLUTE LYMPHOCYTES# (MANUAL) 0.4 10^3/uL (0.5-4.7); ABSOLUTE MONOCYTES # (MANUAL) 2.4 10^3/uL (0.1-1.4); BAND NEUTROPHILS % (MANUAL) 6 % (3-5); BASOPHILS % (MANUAL) 0 % (0-2); EOSINOPHILS % (MANUAL) 0 % (0-6); LYMPHOCYTES % (MANUAL) 1 % (13-45); MONOCYTES % (MANUAL) 12 % (3-13); SEGMENTED NEUTROPHILS % (MAN) 80 % (42-78); TOTAL CELLS COUNTED 100
[2019-11-11 07:47] LABS: ANISOCYTOSIS SLIGHT; PLATELET COMMENT ADEQUATE; PLATELET GIANT PRESENT; POLYCHROMASIA SLIGHT
[2019-11-11 07:49] LABS: ALBUMIN 3.2 g/dL (3.5-5.0); ALKALINE PHOSPHATASE 136 U/L (38-126); ANION GAP 10 (5-19); ASPARTATE AMINO TRANSFERASE 79 U/L (14-36); BILIRUBIN,DIRECT 1.4 mg/dL (0.0-0.4); BILIRUBIN,TOTAL 2.7 mg/dL (0.2-1.3); BLOOD UREA NITROGEN 20 mg/dL (7-20); CARBON DIOXIDE 24 mmol/L (22-30); CHLORIDE 101 mmol/L (98-107); CREATINE KINASE 38 U/L (30-135); GLUCOSE 98 mg/dL (75-110); POTASSIUM 4.1 mmol/L (3.6-5.0); TOTAL PROTEIN 6.3 g/dL (6.3-8.2)
[2019-11-11] MEDS ORDERED: CEFAZOLIN 1 GM/D5W RTU 1 GM/50 ML RTUPB IV ONE (07:57)
[2019-11-11] MEDS ORDERED: METRONIDAZOLE 500 MG/NS RTU 500 MG/100 ML RTUPB IV ONE (08:30)
--- NOTE | 2019-11-11 08:58 | RADIOLOGY REPORT (SQ) ---
EXAM DESCRIPTION: U/S ABDOMEN LIMITED W/O DOP IMAGES COMPLETED DATE/TIME: 11/11/2019 8:41 am REASON FOR STUDY: RUQ abd pain, fever COMPARISON: CT abdomen and pelvis 08/29/2018 TECHNIQUE: Dynamic and static grayscale images acquired of the abdomen and recorded on PACS. Additio nal selected color Doppler and spectral images recorded. LIMITATIONS: None. FINDINGS: PANCREAS: No masses. Visualized pancreatic duct normal caliber. LIVER: Re- demonstration of hepatic steatosis. Today's examination demonstrates multiple rounded hyp oechoic areas throughout the liver. No demonstrated vascularity on color flow image. LIVER VASCULATURE: Normal directional flow of the main portal vein and hepatic veins. GALLBLADDER: Gallstone(s). No pericholecystic fluid. No wall thickening. ULTRASOUND-DETECTED COBIAN'S SIGN: Negative. INTRAHEPATIC DUCTS AND COMMON DUCT: CBD and intrahepatic ducts normal caliber. No filling defects. INFERIOR VENA CAVA: Normal flow. AORTA: No aneurysm. RIGHT KIDNEY: Nonobstructing nephrolithiasis. No hydronephrosis. No proximal ureterectasis. PERITONEAL AND RIGHT PLEURAL SPACE: No ascites or effusions. OTHER: No other significant findings. IMPRESSION: Multiple hypoechoic foci throughout the liver is a nonspecific finding. Differential co nsiderations include both infectious and neoplastic processes. Cholelithiasis without evidence of ch olecystitis. Nonobstructing nephrolithiasis. TECHNICAL DOCUMENTATION: JOB ID: [id number] 2010 [employer]- All Rights Reserved Reading location - IP/workstation name: [email or web address]
[2019-11-11 10:13] LABS: INTERNATIONAL RATION (INR) 1.32; PROTHROMBIN TIME 16.5 SEC (11.4-15.4)
--- NOTE | 2019-11-11 10:16 | RADIOLOGY REPORT (SQ) ---
EXAM DESCRIPTION: CT ABD/PELVIS WITH IV ORAL; CT CHEST WITH IMAGES COMPLETED DATE/TIME: 11/11/2019 9:37 am; 11/11/2019 9:45 am REASON FOR STUDY: Multiple liver lesions, leukocytosis, fever COMPARISON: Right upper quadrant ultrasound 11/11/2019 CONTRAST TYPE AND DOSE: 100 mL Omnipaque 350- low osmolar. RENAL FUNCTION: BUN 20; creatinine 1.2 TECHNIQUE: CT scan of the chest performed using helical scanning technique with dynamic intravenous contrast injection. Images reviewed with lung, soft tissue and bone windows. Reconstructed coronal a nd sagittal MPR images reviewed. All images stored on PACS. CT scan of the abdomen and pelvis performed with intravenous and without oral contrastusing helical s federico technique with dynamic intravenous contrast injection. Images reviewed with lung, soft tissu e and bone windows. Reconstructed coronal and sagittal MPR images reviewed. Delayed images for eval uation of the urinary system also acquired and evaluated. All images stored on PACS. All CT scanners at this facility use dose modulation, iterative reconstruction, and/or weight based d osing when appropriate to reduce radiation dose to as low as reasonably achievable (ALARA). [facility]: Dose Right [facility]: CareDose [facility]: Dose Right [facility]: Teradose 4D [facility]: Smart TipTap RADIATION DOSE: CT Rad equipment meets quality standard of care and radiation dose reduction techniq ues were employed. CTDIvol: 17.8 - 20.1 mGy. DLP: 2288 mGy-cm. . LIMITATIONS: None. FINDINGS: CHEST: LUNGS AND PLEURA: No opacities, nodules, masses. No pneumothorax. No effusions. HILAR AND MEDIASTINAL STRUCTURES: No identified masses or abnormal nodes. HEART AND VASCULAR STRUCTURES: No aneurysm or dissection. No central pulmonary emboli. Trace perica rdial fluid. HARDWARE: None. THYROID AND OTHER SOFT TISSUES: No masses. No adenopathy. BONES: No significant finding. OTHER: No other significant finding. ABDOMEN AND PELVIS: LIVER: Normal size. Re- demonstration of hepatic steatosis. Abnormal findings on comparison ultraso und correlate to multiple hypoattenuating masses throughout the liver. These demonstrate peripheral hyperenhancement on arterial phase imaging. No appreciable central enhancement. No intrahepatic marianna iary dilatation. SPLEEN: Normal size. No focal lesions. PANCREAS: No masses. No significant calcifications. No adjacent inflammation or peripancreatic fluid collections. Pancreatic duct not dilated. GALLBLADDER: Gallstones. No inflammatory changes to suggest cholecystitis. ADRENAL GLANDS: No significant masses or asymmetry. RIGHT KIDNEY AND URETER: No solid masses. Nonobstructing nephrolithiasis. LEFT KIDNEY AND URETER: There is a 1.5 cm partially exophytic lesion emanating from the superior pole . This lesion demonstrates indeterminate Hounsfield units. Few scattered tiny hypoattenuating foci are seen throughout; each of these are too small to definitively characterize. Nonobstructing nephro lithiasis. AORTA AND VESSELS: No aneurysm. No dissection. Renal arteries, SMA, celiac without stenosis. RETROPERITONEUM: No retroperitoneal adenopathy, hemorrhage or masses. BOWEL AND PERITONEAL CAVITY: Scattered colonic diverticulae . without focal inflammatory changes. No pneumoperitoneum. No free fluid. APPENDIX: Normal. ABDOMINAL WALL: No masses. No hernias. PELVIS: No mass or free fluid. Normal bladder. BONES: No significant or acute findings. OTHER: No other significant finding. IMPRESSION: 1. Abnormal findings demonstrated on comparison ultrasound correlate to multiple hypoat tenuating masses throughout the liver. While these may represent multiple hepatic abscesses, neoplas m is not excluded. Recommend dedicated evaluation with liver CT or MRI imaging. 2. Additional finding of a 1.5 cm partially exophytic cyst emanating from the superior pole the left kidney. This is also a nonspecific finding requiring further evaluation with dedicated CT or MR gaby ging. 3. Chronic and incidental findings as detailed above. TECHNICAL DOCUMENTATION: JOB ID: [id number] Quality ID # [id number]: Final reports with documentation of one or more dose reduction techniques (e.g., Au tomated exposure control, adjustment of the mA and/or kV according to patient size, use of iterative reconstruction technique) 2010 [employer]- All Rights Reserved Reading location - IP/workstation name: [email or web address]
[2019-11-11] MEDS ORDERED: RINGERS SOLUTION,LACTATED 1,000 ML IV ONE ×2 (10:52→12:19)
[2019-11-11] MEDS ORDERED: DEXTROSE 5%-WATER 250 ML with NOREPINEPHRINE BITARTRATE 4 MG IV PRN ×2 (11:34)
[2019-11-11] MEDS ORDERED: NOREPINEPHRINE BITARTRATE INJ/PF 4 MG/4 ML SDV IV ONE (11:38)
[2019-11-11 12:10] LABS: APPEARANCE,URINE SLIGHTLY-CLOUDY; BILIRUBIN,URINE NEGATIVE (NEGATIVE); COLOR,URINE AMBER; GLUCOSE, URINE NEGATIVE (NEGATIVE); KETONES,URINE NEGATIVE (NEGATIVE); LEUKOCYTE ESTERASE,URINE NEGATIVE (NEGATIVE); NITRITE,URINE NEGATIVE (NEGATIVE); PROTEIN,URINE NEGATIVE (NEGATIVE)
[2019-11-11 12:15] LABS: URINE SPECIFIC GRAVITY > 1.060
--- NOTE | 2019-11-11 13:17 | EKG REPORT ---
SEVERITY:- NORMAL ECG - SINUS RHYTHM : Confirmed by: José Luis Herring 11-Nov-2019 13:16:16
[2019-11-11 13:24] VITALS: BP 103/63
== END 2019-11-11 13:39 | disposition short-term general hospital (02) ==
LOC: ER 06:43
DX: K75.0 Abscess of liver (principal); D72.825 Bandemia; R65.21 Severe sepsis with septic shock; K76.9 Liver disease, unspecified; R50.9 Fever, unspecified; R11.0 Nausea; R10.9 Unspecified abdominal pain; F17.210 Nicotine dependence, cigarettes, uncomplicated; E78.00 Pure hypercholesterolemia, unspecified; I10 Essential (primary) hypertension; Z96.642 Presence of left artificial hip joint
CPT/HCPCS: 93005; 96376; 99291; 96361; 96375; 96365; 96366; 96367; 36415; 87040; 82550; 83605; 83690; 85025; 85610; 80053; 81001; 84484; 76705; 71260; 74177; 93010; J0690; J3490 ×2; J2270; J2405; J7060; J7030; J7120; 87077

== ENCOUNTER 2019-12-05 10:05 | Emergency (ER) | payer BC ==
--- NOTE | 2019-12-05 10:42 | ER Document Report ---
ED Medical Screen (RME) - General Chief Complaint: Drainage Stated Complaint: BILIARY DRAIN TUBE PROBLEM Time Seen by Provider: 12/05/19 10:41 Primary Care Provider: KAMERON EASTMAN MD [Primary Care Provider] - Follow up as needed Mode of Arrival: Ambulatory Information source: Patient Notes: 53-year-old female presented to ED for blockage to her biliary drain tube. She states that she had liver surgery on November 23 for lesions infections and abscess of the liver. They were supposed to take the drain out before she was discharged but decided that she needed to keep it in. She states today when they irrigated the drain the fluids came out around the tube instead of through the tube as it has been doing up till now they called the infectious disease at [facility] and they told her to come to the emergency room and have the drainage tube evaluated to see if it was blocked. We will get blood and an ultrasound of the area and she will be seen by 1 of the providers. I have greeted and performed a rapid initial assessment of this patient. A comprehensive ED assessment and evaluation of the patient, analysis of test results and completion of medical decision making process will be conducted by an additional ED providers. TRAVEL OUTSIDE OF THE [place] IN LAST 30 DAYS: No - Related Data Allergies/Adverse Reactions: Quinolones Allergy (Severe, Verified 08/12/17 16:27) Hives ofloxacin [From Floxin] Allergy (Verified 08/12/17 16:27) Hives Past Medical History - Past Medical History Cardiac Medical History: Reports: Hx Hypercholesterolemia, Hx Hypertension Denies: Hx Coronary Artery Disease, Hx Heart Attack Pulmonary Medical History: Denies: Hx Asthma, Hx Bronchitis, Hx COPD, Hx Pneumonia Neurological Medical History: Denies: Hx Cerebrovascular Accident, Hx Seizures Renal/ Medical History: Reports: Hx Kidney Stones. Denies: Hx Peritoneal Dialysis GI Medical History: Reports: Hx Diverticulitis Musculoskeltal Medical History: Denies Hx Arthritis Past Surgical History: Reports: Hx Kidney (Renal Surgery) - Lithotripsy, Hx Orthopedic Surgery - Total left hip replacement, Hx Tubal Ligation. Denies: Hx Pacemaker - Immunizations Hx Diphtheria, Pertussis, Tetanus Vaccination: Yes Physical Exam - Vital signs Vitals: Temp Pulse Resp BP Pulse Ox 99.0 F 107 H 16 128/87 H 99 12/05/19 10:10 12/05/19 10:10 12/05/19 10:10 12/05/19 10:10 12/05/19 10:10 Course - Vital Signs Vital signs: Temp Pulse Resp BP Pulse Ox 99.0 F 107 H 16 128/87 H 99 12/05/19 10:10 12/05/19 10:10 12/05/19 10:10 12/05/19 10:10 12/05/19 10:10 Doctor's Discharge - Discharge Referrals: KAMERON EASTMAN MD [Primary Care Provider] - Follow up as needed
[2019-12-05 11:45] LABS: ABSOLUTE BASOPHILS # (AUTO) 0.1 10^3/uL (0.0-0.2); ABSOLUTE EOSINOPHILS # (AUTO) 0.2 10^3/uL (0.0-0.6); ABSOLUTE LYMPHOCYTES (AUTO) 1.7 10^3/uL (0.5-4.7); ABSOLUTE MONOCYTES (AUTO) 1.6 10^3/uL (0.1-1.4); ABSOLUTE NEUT (AUTO) 12.6 10^3/uL (1.7-8.2); BASOPHILS % (AUTO) 0.4 % (0-2); EOSINOPHILS % (AUTO) 1.4 % (0-6); HEMOGLOBIN 13.6 g/dL (12.0-15.5); LYMPHOCYTES % (AUTO) 10.4 % (13-45); MEAN CORPUSCULAR HEMOGLOBIN 28.8 pg (27.0-33.4); MEAN CORPUSCULAR HGB CONC 33.1 g/dL (32.0-36.0); MEAN CORPUSCULAR VOLUME 87 fl (80-97); MONOCYTES % (AUTO) 9.7 % (3-13); PLATELET COUNT 723 10^3/uL (150-450); RED BLOOD COUNT 4.72 10^6/uL (3.72-5.28); RED CELL DISTRIBUTION WIDTH 14.9 % (11.5-14.0); SEGMENTED NEUTROPHILS % (AUTO) 78.1 % (42-78); TOTAL CELLS COUNTED % (AUTO) 100 %; WHITE BLOOD COUNT 16.1 10^3/uL (4.0-10.5)
--- NOTE | 2019-12-05 11:49 | RADIOLOGY REPORT (SQ) ---
EXAM DESCRIPTION: U/S ABDOMEN LIMITED W/O DOP IMAGES COMPLETED DATE/TIME: 12/05/2019 11:31 am REASON FOR STUDY: Evaluate liver and drainage tube COMPARISON: CT scan 11/11/2019. Ultrasound 11/11/2019 TECHNIQUE: Dynamic and static grayscale images acquired of the abdomen and recorded on PACS. Yajairao anabell selected color Doppler and spectral images recorded. LIMITATIONS: None. FINDINGS: PANCREAS: No masses. Visualized pancreatic duct normal caliber. LIVER: Fatty infiltration of the liver. Multiple poorly defined low-density lesions in the liver. 1 contains a E drainage catheter. The 1 with the drainage catheter measures 4 x 5 x 4 cm. Similar in size to previous. No definite improvement in the other low-density lesions. . LIVER VASCULATURE: Normal directional flow of the main portal vein and hepatic veins. GALLBLADDER: No stones. Normal wall thickness. No pericholecystic fluid. ULTRASOUND-DETECTED COBIAN'S SIGN: Negative. INTRAHEPATIC DUCTS AND COMMON DUCT: CBD and intrahepatic ducts normal caliber. No filling defects. INFERIOR VENA CAVA: Normal flow. AORTA: No aneurysm. RIGHT KIDNEY: Nonobstructive calculi. PERITONEAL AND RIGHT PLEURAL SPACE: No ascites or effusions. OTHER: No other significant findings. IMPRESSION: Drainage catheter remains within the hypo dense lesion in the right lobe of the liver. Multiple other lesions also noted without significant interval improvement. TECHNICAL DOCUMENTATION: JOB ID: [id number] 2010 [employer]- All Rights Reserved Reading location - IP/workstation name: [email or web address]
[2019-12-05 12:11] LABS: ALBUMIN 3.3 g/dL (3.5-5.0); ALKALINE PHOSPHATASE 125 U/L (38-126); ANION GAP 11 (5-19); ASPARTATE AMINO TRANSFERASE 21 U/L (14-36); BILIRUBIN,TOTAL 0.4 mg/dL (0.2-1.3); BLOOD UREA NITROGEN 8 mg/dL (7-20); CALCIUM 9.7 mg/dL (8.4-10.2); CARBON DIOXIDE 25 mmol/L (22-30); CHLORIDE 102 mmol/L (98-107); GLUCOSE 131 mg/dL (75-110); POTASSIUM 4.8 mmol/L (3.6-5.0); TOTAL PROTEIN 7.4 g/dL (6.3-8.2)
--- NOTE | 2019-12-05 15:05 | ER Document Report ---
ED General - General Chief Complaint: Drainage Stated Complaint: BILIARY DRAIN TUBE PROBLEM Time Seen by Provider: 12/05/19 10:41 Primary Care Provider: KAMERON EASTMAN MD [Primary Care Provider] - Follow up as needed Mode of Arrival: Ambulatory Notes: Patient is a 53-year-old female who presents to the emergency department with a chief complaint of leakage her biliary duct/liver surgery drain. Patient was discharged on November 23 from [facility]. This morning the patient was having her drain irrigated by her . The patient stated that had leaked and after they flushed the drain. Denies any redness, fever, chills or any other symptoms. Denies any nausea, vomiting, or diarrhea. Denies any pain at her right upper quadrant. Patient is currently on IV Rocephin at home. Patient is being managed by Dr. Wilhelm from infectious disease at [facility]. TRAVEL OUTSIDE OF THE [place] IN LAST 30 DAYS: No - Related Data Allergies/Adverse Reactions: Quinolones Allergy (Severe, Verified 08/12/17 16:27) Hives ofloxacin [From Floxin] Allergy (Verified 08/12/17 16:27) Hives Past Medical History - General Information source: Patient - Social History Smoking Status: Unknown if Ever Smoked Family History: Reviewed & Not Pertinent, Hypertension - Past Medical History Cardiac Medical History: Reports: Hx Hypercholesterolemia, Hx Hypertension Denies: Hx Coronary Artery Disease, Hx Heart Attack Pulmonary Medical History: Denies: Hx Asthma, Hx Bronchitis, Hx COPD, Hx Pneumonia Neurological Medical History: Denies: Hx Cerebrovascular Accident, Hx Seizures Renal/ Medical History: Reports: Hx Kidney Stones. Denies: Hx Peritoneal Dialysis GI Medical History: Reports: Hx Diverticulitis Musculoskeletal Medical History: Denies Hx Arthritis Past Surgical History: Reports: Hx Kidney (Renal Surgery) - Lithotripsy, Hx Orthopedic Surgery - Total left hip replacement, Hx Tubal Ligation. Denies: Hx Pacemaker - Immunizations Hx Diphtheria, Pertussis, Tetanus Vaccination: Yes Review of Systems - Review of Systems Notes: REVIEW OF SYSTEMS: CONSTITUTIONAL : Denies recent illness. Denies recent unintentional weight loss. Denies fever, chills, or sweats. EENT: Denies eye, ear, throat, or mouth pain, discharge, or symptoms. Denies nasal or sinus congestion. CARDIOVASCULAR: Denies chest pain. RESPIRATORY: Denies shortness of breath, cough, congestion, difficulty breathing , or wheezing. GASTROINTESTINAL: See HPI. GENITOURINARY: Denies difficulty urinating, burning, blood in urine, urgency or frequency. MUSCULOSKELETAL: Denies neck and back pain. Denies joint pain or swelling. SKIN: Denies rash, itchiness, or lesions HEMATOLOGIC : Denies easy bruising or bleeding. LYMPHATIC: Denies swollen, painful, enlarged glands. NEUROLOGICAL: Denies no numbness or tingling denies weakness. Denies headache. Denies altered mental status. Denies alteration in speech. PSYCHIATRIC: Denies stress, anxiety, alteration in sleep patterns, or depression. All other systems reviewed and negative. Physical Exam - Vital signs Vitals: Temp Pulse Resp BP Pulse Ox 99.0 F 107 H 16 128/87 H 99 12/05/19 10:10 12/05/19 10:10 12/05/19 10:10 12/05/19 10:10 12/05/19 10:10 - Notes Notes: PHYSICAL EXAMINATION: GENERAL: Appears well, healthy, well-nourished, no acute distress. HEAD: Normocephalic, atraumatic. EYES: PERRL, conjunctiva normal, all extraocular movements intact, sclera nonicteric ENT: Moist mucous membranes. NECK: Supple, no noticeable swelling, redness, rash. Normal range of motion. LUNGS: Equal breath sounds bilaterally and clear to auscultation. No wheezes rales or rhonchi. CARDIOVASCULAR: S1-S2, regular rate, regular rhythm. Radial pulses 2+, normal. ABDOMEN: Normoactive bowel sounds. Soft, nontender, no guarding, no rebound tenderness, and no masses palpated. Biliary drain noted to right upper abdomen. EXTREMITIES: Normal strength and range of motion, no pitting or edema. No cyanosis. NEUROLOGICAL: Moves all extremities upon command. Strength 5/5 in all extremities. PSYCH: Normal mood, normal affect. SKIN: Warm, dry. No rash, lesions, ulcerations noted. Normal skin turgor. Course - Re-evaluation Re-evalutation: 12/05/19 15:06 Patient has a 4 x 5 x 4 cm lesion in the liver with a drain connects on ultrasound with no improvement. Labs show a Leukocytosis of 16,100 with the left shift. No anemia noted. Chemistries are unremarkable. LFTs and lipase are normal. I called the patient transfer center at [facility]. Will await call back from the team that initially perform the surgery. 12/05/19 15:[address] Umanzor, the lead resident at [facility]. He will call the VIR team who placed a drain and then will call me back. 12/05/19 15:39 Dr. Umanzor called me back and he spoke with the [facility] team. He will have the radiology team call the patient on Saturday and set up an outpatient appointment through [facility] next week. Relayed this information on to the patient. Patient is in agreement with this plan. Follow-up precautions were given. Verbal discharge instructions were given to the patient. They verbalized understanding. They are stable for discharge. - Vital Signs Vital signs: Temp Pulse Resp BP Pulse Ox 98.7 F 86 16 105/56 L 96 12/05/19 16:23 12/05/19 16:23 12/05/19 16:23 12/05/19 16:23 12/05/19 16:23 - Laboratory Result Diagrams: 12/05/19 10:48 12/05/19 10:48 Laboratory results interpreted by me: 12/05/19 12/05/19 10:48 10:48 WBC 16.1 H RDW 14.9 H Plt Count 723 H Lymph % (Auto) 10.4 L Absolute Neuts (auto) 12.6 H Absolute Monos (auto) 1.6 H Seg Neutrophils % 78.1 H Glucose 131 H Albumin 3.3 L Discharge - Discharge Clinical Impression: Encounter for biliary drainage tube placement Condition: Stable Disposition: HOME, SELF-CARE Additional Instructions: You were seen today in the emergency department for your biliary drain leaking. You will be contacted by [facility] interventional radiology team on Saturday. If they do not call you on Saturday, call them first thing on Saturday. They are planning to schedule you with interventional radiology to evaluate your drain. Continue to flush your drain. If you develop abdominal pain, have worsening symptoms, or have any symptoms that are worrisome to you, please return to the emergency department. Referrals: KAMERON EASTMAN MD [Primary Care Provider] - Follow up as needed
[2019-12-05 16:32] VITALS: BP 105/56
== END 2019-12-05 16:40 | disposition home or self-care (01) ==
LOC: ER 10:05
DX: T85.590A Other mechanical complication of bile duct prosthesis, initial encounter (principal); Z88.8 Allergy status to other drugs, medicaments and biological substances; I10 Essential (primary) hypertension
CPT/HCPCS: 36415; 76705; 80053; 83690; 85025; 99284

== ENCOUNTER → 2019-12-16 | Outpatient (CLI) | payer BC ==
--- NOTE | 2019-12-16 10:57 | RADIOLOGY REPORT (SQ) ---
EXAM DESCRIPTION: CT ABD/PELVIS WITH IV ONLY IMAGES COMPLETED DATE/TIME: 12/16/2019 9:43 am REASON FOR STUDY: HEPATIC ABSCESS (K75.0) K75.0 ABSCESS OF LIVER COMPARISON: 11/11/2019 TECHNIQUE: CT scan of the abdomen and pelvis performed using helical scanning technique with dynamic intravenous contrast injection. No oral contrast. Images reviewed with lung, soft tissue, and bone windows. Reconstructed coronal and sagittal MPR images reviewed. Delayed images for evaluation of the urinary system also acquired. All images stored on PACS. All CT scanners at this facility use dose modulation, iterative reconstruction, and/or weight based d osing when appropriate to reduce radiation dose to as low as reasonably achievable (ALARA). [facility]: Dose Right [facility]: CareDose [facility]: Dose Right [facility]: Teradose 4D [facility]: [employer] CONTRAST TYPE AND DOSE: contrast/concentration: Isovue 350.00 mmol/ml; Total Contrast Delivered: 95. 0 ml; Total Saline Delivered: 71.0 ml RENAL FUNCTION: 0.66 creatinine RADIATION DOSE: CT Rad equipment meets quality standard of care and radiation dose reduction techniq ues were employed. CTDIvol: 20.0 - 20.1 mGy. DLP: 2051 mGy-cm.. LIMITATIONS: None. FINDINGS: LOWER CHEST: No significant findings. No nodules or infiltrates. Chronic right lateral ri b fractures. LIVER: Interval resolution of previously seen hypodense area within the inferior right hepatic lobe a t site of pigtail catheter placement. There are multiple additional hypoechoic lesions scattered pre dominantly throughout the right hepatic lobe, largest measuring 1.8 cm, previously 2.8 cm (series 2, image 16). No intrahepatic ductal dilation. SPLEEN: Normal size. No focal lesions. PANCREAS: No masses. No significant calcifications. No adjacent inflammation or peripancreatic fluid collections. Pancreatic duct not dilated. GALLBLADDER: Cholelithiasis. No pericholecystic inflammatory change. ADRENAL GLANDS: No significant masses or asymmetry. RIGHT KIDNEY AND URETER: No solid masses. Multiple nonobstructing stones, largest measuring 10 mm. No hydronephrosis or hydroureter. LEFT KIDNEY AND URETER: Mild interval increase in size of the intermediate density exophytic left upp er pole lesion measuring 19 mm, previously 14 mm (series 2, image 29). Multiple nonobstructing ston es, largest conglomerate measuring 15 mm. No hydronephrosis or hydroureter. AORTA AND VESSELS: No aneurysm. No dissection. Renal arteries, SMA, celiac without stenosis. RETROPERITONEUM: No retroperitoneal adenopathy, hemorrhage or masses. BOWEL AND PERITONEAL CAVITY: Scattered colonic diverticula. There is an area of perisigmoid strandin g and trace fluid (series 2, image 65). No focal drainable collection. No free extraluminal gas. APPENDIX: Normal. PELVIS: Decompressed urinary bladder. No pelvic free fluid, adenopathy or mass. ABDOMINAL WALL: No masses. No hernias. BONES: No significant or acute findings. OTHER: No other significant finding. IMPRESSION: 1. Resolution of previously seen largest hypodense collection along the inferior right hepatic lobe at site of pigtail catheter. 2. Interval change with decreased size of multiple additional hypodense hepatic lesions, likely smal l additional abscesses although underlying lesions are not entirely excluded. Largest hypodense area measures 18 mm, previously 28 mm. No residual drainable collections. 3. Multiple scattered colonic diverticula with area of perisigmoid stranding suggestive of acute unc omplicated diverticulitis. Recommend correlation with patient symptoms. 4. Interval increase in size of an indeterminate exophytic left renal lesion measuring 1.9 cm. Diff erential includes hemorrhagic/proteinaceous cyst or solid lesion. Dedicated renal protocol CT, MR or ultrasound could be considered for further characterization. 5. Cholelithiasis. Multiple bilateral nonobstructing renal stones. TECHNICAL DOCUMENTATION: JOB ID: [id number] Quality ID # [id number]: Final reports with documentation of one or more dose reduction techniques (e.g., Au tomated exposure control, adjustment of the mA and/or kV according to patient size, use of iterative reconstruction technique) 2010 [employer]- All Rights Reserved Reading location - IP/workstation name: [email or web address]
== END ==
LOC: RAD 09:11
PROVIDERS: ATTEND Internal Medicine Infectious Disease
DX: K75.0 Abscess of liver (principal); K80.20 Calculus of gallbladder without cholecystitis without obstruction; K57.30 Diverticulosis of large intestine without perforation or abscess without bleeding
CPT/HCPCS: 74177